=== PATIENT | male | born 1985 | race Caucasian/White ===

== ENCOUNTER 2017-06-05 15:33 | Emergency (ER) | payer SELFPAY ==
[2017-06-05 16:10] VITALS: BMI 27.1
[2017-06-05 16:13] VITALS: RESP 18
[2017-06-05] MEDS ORDERED: Naproxen 550 mg Tab PO STA (16:26)
--- NOTE | 2017-06-05 17:41 | C.PDOC ---
History Of Present Illness 32 y/o male presents to ED with complaints of left hand pain for 2 weeks. Patient states he works at [employer] and banged dorsum aspect of left hand with metal machine. Patient denies numbness, weakness, breaks in skin or any other complaints at this time. Time Seen by Provider: 06/05/17 15:51 Chief Complaint (Nursing): Finger,Hand,&Wrist History Per: Patient History/Exam Limitations: no limitations Onset/Duration Of Symptoms: Days Current Symptoms Are (Timing): Still Present Quality: "Pain" Past Medical History Reviewed: Historical Data, Nursing Documentation, Vital Signs Vital Signs: Last Vital Signs Temp 98.1 F 06/05/17 16:51 Pulse 91 H 06/05/17 16:51 Resp 18 06/05/17 16:51 BP 155/83 H 06/05/17 16:51 Pulse Ox 98 06/05/17 17:41 - Medical History PMH: No Chronic Diseases Surgical History: No Surg Hx - [facility] Procedures EXCISION OF LEFT SHOULDER MUSCLE, OPEN APPROACH, DIAGNOSTIC (01/31/15) EXCISION OF STOMACH, ENDO, DIAGN (03/05/15) Family History: States: No Known Family Hx - Social History Hx Alcohol Use: No (DENIED) Hx Substance Use: No (DENIED) - Immunization History Hx Tetanus Toxoid Vaccination: No Hx Influenza Vaccination: No Hx Pneumococcal Vaccination: No Review Of Systems Except As Marked, All Systems Reviewed And Found Negative. Musculoskeletal: Positive for: Hand Pain Skin: Negative for: Rash, Bruising Neurological: Negative for: Weakness, Numbness Physical Exam - Physical Exam Appears: Non-toxic, No Acute Distress Skin: Warm, Dry, No Rash Head: Atraumatic, Normacephalic Eye(s): bilateral: Normal Inspection Oral Mucosa: Moist Cardiovascular: Rhythm Regular Respiratory: Normal Breath Sounds, No Rales, No Rhonchi, No Wheezing Extremity: Tenderness (To palpation on dorsum aspect of left hand over 3rd MTP) , Capillary Refill (<2 seconds), No Deformity, Swelling (Dorsum aspect of left hand) Extremity: Left: Normal ROM Pulses: Left Radial: Normal, Right Radial: Normal Neurological/Psych: Oriented x3, Normal Motor, Normal Sensation ED Course And Treatment O2 Sat by Pulse Oximetry: 98 (RA) Pulse Ox Interpretation: Normal Progress Note: Left hand xray showed no fracture or dislocation. Patient put on removable spline and d/c with f.u to hand surgery Disposition Counseled Patient/Family Regarding: Studies Performed, Diagnosis, Need For Followup, Rx Given - Disposition Referrals: [facility] [Outside] [facility] [Outside] Thanh Gzumán MD [Medical Doctor] - Disposition: HOME/ ROUTINE Disposition Time: 17:40 Condition: STABLE Additional Instructions: FOLLOW UP WITH ORTHOPEDICS/HAND SURGERY WITHIN 1 WEEK USE PAIN MEDICATION DIRECTED RETURN TO EMERGENCY ROOM IF SYMPTOMS WORSEN SEGUIMIENTO CON ORTOPEDIA / CIRUGA DE LA MANO DENTRO DE 1 SEMANA UTILIZAR EL MEDICAMENTO PARA EL DOLOR COLE SE INDICA REGRESE AL SPENCER DE EMERGENCIA SI LOS SNTOMAS EMPEORAN Prescriptions: Naproxen [Naprosyn] 1 tab PO BID PRN #25 tab PRN Reason: Pain Instructions: Contusion (DC) Forms: [employer] (German) Print Language: TAJIK - POA Present On Arrival: None - Clinical Impression Clinical Impression: Sprain of left hand, Contusion of hand, left - Scribe Statement The provider has reviewed the documentation as recorded by the Scribchris Jenkins All medical record entries made by the Scribe were at my direction and personally dictated by me. I have reviewed the chart and agree that the record accurately reflects my personal performance of the history, physical exam, medical decision making, and the department course for this patient. I have also personally directed, reviewed, and agree with the discharge instructions and disposition.
--- NOTE | 2017-06-05 18:54 | RAD ---
PROCEDURE: Left Hand Radiographs. HISTORY: LEFT HAND INJURY R/O FX COMPARISON: None. FINDINGS: BONES: Normal. No fracture. JOINTS: Juxta-articular osteopenia of uncertain etiology/ significance. SOFT TISSUES: Soft tissue swelling dorsal aspect of the hand OTHER FINDINGS: None. IMPRESSION: Soft tissue swelling without acute articular or osseous abnormality. Concordant results with the preliminary interpretation rendered by the emergency department physician procedure.
[2017-06-05 19:06] VITALS: BP 148/76; PULSE 88; TEMP 98.5; O2SAT 99
== END 2017-06-05 19:05 | disposition home or self-care (01) ==
LOC: C.ER 15:33
DX: S63.92XA Sprain of unspecified part of left wrist and hand, initial encounter (principal); S60.222A Contusion of left hand, initial encounter; W22.8XXA Striking against or struck by other objects, initial encounter; Y92.89 Other specified places as the place of occurrence of the external cause; Y99.0 Civilian activity done for income or pay

== ENCOUNTER 2017-07-14 15:34 | Emergency (ER) | payer OTHER ==
[2017-07-14 15:42] VITALS: BMI 27.2
--- NOTE | 2017-07-14 15:53 | C.PDOC ---
History Of Present Illness 32 year old male presents to the ED with complaint of left 1st toe pain and swelling x 5 days. Patient states pain is near nail bed and onset was s/p cutting the nail about 1 week ago. Patient also reports discharge from the area. He denies fever, chills, direct injury. Time Seen by Provider: 07/14/17 15:49 Chief Complaint (Nursing): Lower Extremity Problem/Injury History Per: Patient History/Exam Limitations: no limitations Onset/Duration Of Symptoms: Days (5) Current Symptoms Are (Timing): Still Present Additional History Per: Patient - Ankle/Foot Description Of Injury: denies: Struck With Object, Struck Against Object Past Medical History Reviewed: Historical Data, Nursing Documentation, Vital Signs Vital Signs: Last Vital Signs Temp 98.6 F 07/14/17 17:12 Pulse 91 H 07/14/17 17:12 Resp 20 07/14/17 17:12 BP 135/86 07/14/17 17:12 Pulse Ox 98 07/14/17 17:12 - Medical History PMH: No Chronic Diseases Denies: HIV, Chronic Kidney Disease Surgical History: No Surg Hx - [facility] Procedures EXCISION OF LEFT SHOULDER MUSCLE, OPEN APPROACH, DIAGNOSTIC (01/31/15) EXCISION OF STOMACH, ENDO, DIAGN (03/05/15) Family History: States: Unknown Family Hx - Social History Hx Alcohol Use: No (DENIED) Hx Substance Use: No (DENIED) - Immunization History Hx Tetanus Toxoid Vaccination: No Hx Influenza Vaccination: Yes (2017) Hx Pneumococcal Vaccination: No Review Of Systems Constitutional: Negative for: Fever, Chills Musculoskeletal: Positive for: Other (left 1st toe pain, swelling and discharge ) Physical Exam - Physical Exam Appears: Well, No Acute Distress Skin: Normal Color, Warm, Dry, Other (paronychia to lateral aspect of left 1st toenail with some localized erythema and scant purulent drainage ) Head: Atraumatic Eye(s): bilateral: Normal Inspection Respiratory: Other (nard) Extremity: Normal ROM, Capillary Refill (less than 2 seconds ) Extremity: Bilateral: Atraumatic, No Pedal Edema, Normal ROM Neurological/Psych: Oriented x3, Normal Speech, Normal Cognition Gait: Steady ED Course And Treatment O2 Sat by Pulse Oximetry: 97 Progress - Re-Evaluation Re-evaluation Note: 07/14/17 15:54 D/W POD RESIDENT, WILL EVAL IN ER 07/14/17 17:03 s/p nail removal by podiatry resident. - Continuity of Care Discussed pt. case with software consultant/specialty: Podiatry Disposition Counseled Patient/Family Regarding: Diagnosis, Need For Followup, Rx Given - Disposition Referrals: [facility] [Outside] [facility] [Outside] Disposition: HOME/ ROUTINE Disposition Time: 17:03 Condition: IMPROVED Additional Instructions: FOLLOW UP PODIATRY CLINIC 07/24 Prescriptions: Acetaminophen [Tylenol Extra Strength] 2 tab PO Q6 #30 tablet Cephalexin [cephalexin] 500 mg PO BID #14 cap Ibuprofen [Motrin] 600 mg PO Q6 #30 tab Instructions: Paronychia (DC) Forms: [facility] (Telugu), Work Excuse - Clinical Impression Clinical Impression: Paronychia - Scribe Statement The provider has reviewed the documentation as recorded by the Scribe (Mary Tapia) Provider Attestation: All medical record entries made by the Scribe were at my direction and personally dictated by me. I have reviewed the chart and agree that the record accurately reflects my personal performance of the history, physical exam, medical decision making, and the department course for this patient. I have also personally directed, reviewed, and agree with the discharge instructions and disposition.
[2017-07-14] MEDS ORDERED: Lidocaine 2% Inj (20ml) INFIL ONE (16:45)
[2017-07-14] MEDS ORDERED: Lidocaine 2% MPF (5 ml) Inj ONE (16:48)
[2017-07-14] MEDS ORDERED: Bacitracin 500 Units/gm Oint Foilpak UD TOP ONE (17:02)
[2017-07-14] MEDS ORDERED: Bacitracin 500 Units/gm Oint Foilpak UD ONE (17:05)
[2017-07-14 17:14] VITALS: BP 135/86; PULSE 91; RESP 20; TEMP 98.6
--- NOTE | 2017-07-14 17:40 | CP.PCM.CON ---
History of Present Illness - History of Present Illness History of Present Illness: 32 yo male patient with no significant PMHx was seen at bedside ED this afternoon after request for podiatry consultation concerning Left foot hallux paronychia. Patient states he noticed pain and drainage to left hallux 1 week ago after he tried to cut his hallux nail. Patient complains of pain to left hallux. Patient denies of any trauma other than cutting his own nail. Patient denies of any similar experience in the past. Patient was verbally consented for the partial nail avulsion procedure. Patient denies of any N/V/F/C or SOB today Review of Systems - Constitutional Constitutional: As Per HPI Past Patient History - Past Medical History & Family History Past Medical History?: No - Past Social History Smoking Status: Light Smoker < 10 Cigarettes Daily - CARDIAC Hx Cardiac Disorders: No - PULMONARY Hx Respiratory Disorders: No - NEUROLOGICAL Hx Neurological Disorder: No - HEENT Hx HEENT Problems: No - RENAL Hx Chronic Kidney Disease: No - ENDOCRINE/METABOLIC Hx Endocrine Disorders: No - HEMATOLOGICAL/ONCOLOGICAL Hx Human Immunodeficiency Virus (HIV): No - INTEGUMENTARY Hx Dermatological Problems: No - MUSCULOSKELETAL/RHEUMATOLOGICAL Hx Falls: Yes - GASTROINTESTINAL Hx Gastrointestinal Disorders: No - GENITOURINARY/GYNECOLOGICAL Hx Genitourinary Disorders: No - PSYCHIATRIC Hx Substance Use: No (DENIED) - SURGICAL HISTORY Hx Surgeries: No - ANESTHESIA Hx Anesthesia: No Meds Home Medications: Home Medication List Medication Instructions Recorded Confirmed Type Acetaminophen [Tylenol Extra 2 tab PO Q6 #30 tablet 07/14/17 Rx Strength] Cephalexin [cephalexin] 500 mg PO BID #14 cap 07/14/17 Rx Ibuprofen [Motrin] 600 mg PO Q6 #30 tab 07/14/17 Rx Allergies/Adverse Reactions: Allergies Allergy/AdvReac Type Severity Reaction Status Date / Time No Known Allergies Allergy Verified 07/14/17 15:44 Physical Exam - Constitutional Appears: Well, Non-toxic, No Acute Distress - Head Exam Head Exam: ATRAUMATIC - Extremities Exam Additional comments: Left lower extremity exam DERM: Erythema noted to left hallux around medial border, mild serous drainage noted from the medial border of hallux nail, Slihg tmal-odor noted from the left hallux. Hallux nail is intact to the nailbed. VASC: Moderate swelling to left hallux noted, medially. Palpable DP and PT noted bilaterally DESIGNER ARCHITECT less than 3seconds noted to all digits NEURO: Gross sensation intact ORTHO: pain on palpation to left hallux medial aspect - Neurological Exam Neurological exam: Alert, Oriented x3 - Psychiatric Exam Psychiatric exam: Normal Affect, Normal Mood - Skin Skin Exam: Normal Color, Warm Results - Vital Signs Recent Vital Signs: Last Vital Signs Temp 98.6 F 07/14/17 17:12 Pulse 91 H 07/14/17 17:12 Resp 20 07/14/17 17:12 BP 135/86 07/14/17 17:12 Pulse Ox 98 07/14/17 17:12 Assessment & Plan - Assessment and Plan (Free Text) Assessment: 32 yo male patient presenting with painful left hallux paronychia Plan: Patient was seen, evaluated and treated labs and vitals reviewed discussed in detail with attending Dr. Thakkar Verbal consent obtained from the patient for left hallux partial nail avulsion Left hallux partial nail avulsion of medial border performed with sterile equipments; no complications; 2% Lidocaine plain 3cc injected into Left hallux prior to procedure Patient was advised to change dressing every other day with Bacitracin and DSD Patietn was advised to keep the dressing clean and dry patient was advised to follow up with podiatry clinic Rx pain medication per ED Rx PO abx per ED
[2017-07-15 09:11] VITALS: O2SAT 97
== END 2017-07-14 17:13 | disposition home or self-care (01) ==
LOC: C.ER 15:34
DX: L03.032 Cellulitis of left toe (principal)

== ENCOUNTER 2017-12-05 09:39 | Inpatient (IN) | payer OTHER ==
[2017-12-05 09:39] VITALS: BMI 27.2
[2017-12-05 10:13] LABS: BASO # 0.1 K/uL (0.0-0.2); BASO % 0.6 % (0.0-2.0); EOS # 0.1 K/uL (0.0-0.7); EOS % 0.4 % (0.0-4.0); HEMOGLOBIN 13.6 g/dL (12.0-18.0); LYMPH # 2.8 K/uL (1.0-4.3); LYMPH % 22.5 % (20.0-40.0); MEAN CELL VOLUME 89.7 fL (80.0-94.0); MEAN CORPUSCULAR HEMOGLOBIN 31.5 pg (27.0-31.0); MEAN CORPUSCULAR HGB CONC 35.1 g/dL (33.0-37.0); MEAN PLATELET VOLUME 9.1 fL (7.2-11.7); MONO # 1.1 K/uL (0.0-0.8); MONO % 8.6 % (0.0-10.0); NEUT # 8.4 K/uL (1.8-7.0); NEUT % 67.9 % (50.0-75.0); NRBC % 0.1 % (0.0-2.0); RBC 4.33 Mil/uL (4.40-5.90); RED CELL DISTRIBUTION WIDTH 12.6 % (11.5-14.5); WHITE BLOOD COUNT 12.4 K/uL (4.8-10.8)
[2017-12-05 10:37] LABS: ALB/GLOB RATIO 1.1 (1.0-2.1); ALBUMIN 4.8 g/dL (3.5-5.0); ALT/SGPT 38 U/L (21-72); AST/SGOT 57 U/L (17-59); BLOOD UREA NITROGEN 11 mg/dL (9-20); CALCIUM 9.2 mg/dl (8.6-10.4); GFR NON-AFRICAN AMERICAN > 60
[2017-12-05] MEDS ORDERED: Vancomycin 1 GM 1 GM/250 ML BAG IV STA (10:45)
[2017-12-05] MEDS ORDERED: Cefepime IV 1 gm in Dextrose 1 GM/50 ML BAG IVPB STA (10:45)
[2017-12-05] MEDS ORDERED: Vancomycin 1 GM 1 GM/250 ML BAG IVPB ONE (10:56)
--- NOTE | 2017-12-05 12:02 | C.PDOC ---
History Of Present Illness Patient presents to ED c/o pain, swelling and redness of the left leg for approx 3 days. He states he was itchy and picked at the area, and then the symptoms began. Patient denies fever, trauma/injuries, calf pain, SOB, sensory changes. 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 Time Seen by Provider: 12/05/17 09:51 Chief Complaint (Nursing): Lower Extremity Problem/Injury History Per: Patient History/Exam Limitations: no limitations Onset/Duration Of Symptoms: Days (3) Current Symptoms Are (Timing): Still Present Severity: Moderate Past Medical History Reviewed: Historical Data, Nursing Documentation, Vital Signs Vital Signs: Last Vital Signs Temp 97.5 F L 12/05/17 09:54 Pulse 88 12/05/17 09:54 Resp 20 12/05/17 09:54 BP 127/86 12/05/17 09:54 Pulse Ox 100 12/05/17 09:54 - Medical History Other PMH: dermatomyositis - [facility] Procedures EXCISION OF LEFT SHOULDER MUSCLE, OPEN APPROACH, DIAGNOSTIC (01/31/15) EXCISION OF STOMACH, ENDO, DIAGN (03/05/15) Family History: States: No Known Family Hx - Social History Hx Alcohol Use: No (DENIED) Hx Substance Use: No (DENIED) - Immunization History Hx Tetanus Toxoid Vaccination: No Hx Influenza Vaccination: Yes (2017) Hx Pneumococcal Vaccination: No Review Of Systems Constitutional: Negative for: Fever, Chills Cardiovascular: Negative for: Chest Pain, Palpitations Respiratory: Negative for: Shortness of Breath Gastrointestinal: Negative for: Nausea, Vomiting, Abdominal Pain, Diarrhea Musculoskeletal: Positive for: Leg Pain Neurological: Negative for: Weakness, Numbness Physical Exam - Physical Exam Appears: Well, Non-toxic, No Acute Distress Skin: Other (see extremity exam, (+) scattered small abrasions/healing wounds on extremities, no track bahena ) Head: Normacephalic Eye(s): bilateral: Normal Inspection Oral Mucosa: Moist Cardiovascular: Rhythm Regular Respiratory: Normal Breath Sounds, No Rales, No Rhonchi, No Wheezing Gastrointestinal/Abdominal: Normal Exam, Bowel Sounds, Soft, No Tenderness Extremity: Capillary Refill (< 2 sec all digits ), Other (left lower leg - erythema from superior aspect of patella to distal lower leg, (+) warm to touch, (+) diffusely TTP, no calf tenderness) Pulses: Left Dorsalis Pedis: Normal, Right Dorsalis Pedis: Normal Neurological/Psych: Oriented x3, Normal Sensation Gait: Steady ED Course And Treatment - Laboratory Results Result Diagrams: 12/12/17 04:26 12/12/17 04:26 O2 Sat by Pulse Oximetry: 100 (ra) Pulse Ox Interpretation: Normal Progress Note: Blood work ordered and reviewed. Patient given IV NS bolus, IV Vancomycin + IV Cefepime. - Physician Consult Information Physician Contacted: Doyle Tapia Outcome Of Conversation: Discussed patient with hospitalist, agrees with admission for left leg cellulitis. Disposition - Disposition Disposition: HOSPITALIZED Disposition Time: 11:48 Condition: STABLE - Clinical Impression Clinical Impression: Left leg cellulitis Decision To Admit - Pt Status Changed To: Hospital Disposition Of: Inpatient - Admit Certification Admit to Inpatient:: After my assessment, the patient will require hospitalization for at least two midnights. This is because of the severity of symptoms shown, intensity of services needed, and/or the medical risk in this patient being treated as an outpatient. - InPatient: Physician Admission Certification: I certify that this patient requires 2 or more midnights of care for the following reason:: see notes - . Bed Request Type: Regular Admitting Physician: Doyle Tapia Patient Diagnosis: Left leg cellulitis
[2017-12-05 13:01] LABS: URINE BACTERIA RARE (<OCC); URINE BILIRUBIN NEGATIVE (NEGATIVE); URINE BLOOD 1+ (NEGATIVE); URINE CLARITY Clear (Clear); URINE COLOR Amber (YELLOW); URINE GLUCOSE (UA) NORMAL (Normal); URINE LEUKOCYTE ESTERASE NEG Leu/uL (Negative); URINE PROTEIN 3+ mg/dL (NEGATIVE); URINE UROBILINOGEN NORMAL mg/dL (0.2-1.0)
[2017-12-05] MEDS ORDERED: HYDROmorphone 0.5 mg/0.5 ml ISec ONE (15:10)
[2017-12-05] MEDS: Sodium Chloride 0.9% 1,000 ML IV SCH ×2 (16:06→19:11)
--- NOTE | 2017-12-05 17:37 | CP.PCM.CON ---
History of Present Illness - History of Present Illness History of Present Illness: Patient was seen in the ER hallway he has severe cellulitis on left knee and leg started from the left leg to the knee and is painful knee. he does not say any trauma or insect bite but had fever and chills and left leg redness andpain that brought him to the hospital He also give history of Polymyositis and was in hospital for 1 year in 2016 and was treated by high dose steroids. He denies any weakness in his upper body or other muscles at present. Did had feverhe went to work today but felt weak and pain and came to ER No history of Diabetes not taking any medications at home denies any drug abuse, Light smoking surgeries: none Past Patient History - Past Medical History & Family History Past Medical History?: No - Past Social History Smoking Status: Light Smoker < 10 Cigarettes Daily - CARDIAC Hx Cardiac Disorders: No - PULMONARY Hx Respiratory Disorders: No - NEUROLOGICAL Hx Neurological Disorder: No - HEENT Hx HEENT Problems: No - RENAL Hx Chronic Kidney Disease: No - ENDOCRINE/METABOLIC Hx Endocrine Disorders: No - HEMATOLOGICAL/ONCOLOGICAL Hx Human Immunodeficiency Virus (HIV): No - INTEGUMENTARY Hx Dermatological Problems: No - MUSCULOSKELETAL/RHEUMATOLOGICAL Hx Falls: Yes - GASTROINTESTINAL Hx Gastrointestinal Disorders: No - GENITOURINARY/GYNECOLOGICAL Hx Genitourinary Disorders: No - PSYCHIATRIC Hx Substance Use: No (DENIED) - SURGICAL HISTORY Hx Surgeries: No - ANESTHESIA Hx Anesthesia: No Meds Allergies/Adverse Reactions: Allergies Allergy/AdvReac Type Severity Reaction Status Date / Time No Known Allergies Allergy Verified 12/05/17 09:56 - Medications Medications: Current Medications Vancomycin HCl 1,000 mg/ (Sodium Chloride) 250 mls @ 166.6 mls/hr IVPB Q12H SVITLANA; Protocol Cefepime HCl 1 gm/ Dextrose 50 mls @ 100 mls/hr IVPB Q12H SVITLANA; Protocol Sodium Chloride (Sodium Chloride 0.9%) 1,000 mls @ 150 mls/hr IV .Q6H40M SVITLANA Last Admin: 12/05/17 16:06 Dose: 150 mls/hr Lactobacillus Acidophilus (Bacid Acidophilus) 1 cap PO BID SVITLANA Physical Exam - Constitutional Appears: No Acute Distress - Head Exam Head Exam: ATRAUMATIC, NORMOCEPHALIC - Eye Exam Eye Exam: Normal appearance - ENT Exam ENT Exam: Mucous Membranes Dry - Neck Exam Neck exam: Positive for: Normal Inspection - Respiratory Exam Respiratory Exam: Clear to Auscultation Bilateral - Cardiovascular Exam Cardiovascular Exam: REGULAR RHYTHM, +S1, +S2 - GI/Abdominal Exam GI & Abdominal Exam: Normal Bowel Sounds, Soft - Extremities Exam Extremities exam: Positive for: joint swelling Additional comments: left leg extensive swelling from left leg to left knee redness and diffuse warmth and swelling Results - Vital Signs Recent Vital Signs: Last Vital Signs Temp 99.8 F H 12/05/17 14:33 Pulse 97 H 12/05/17 14:33 Resp 18 12/05/17 14:33 BP 115/70 12/05/17 14:33 Pulse Ox 97 12/05/17 14:33 - Labs Result Diagrams: 12/05/17 10:10 12/05/17 10:10 Labs: Laboratory Results - last 24 hr 12/05/17 12/05/17 12/05/17 10:10 10:10 12:49 WBC 12.4 H D RBC 4.33 L Hgb 13.6 Hct 38.8 MCV 89.7 D MCH 31.5 H MCHC 35.1 RDW 12.6 Plt Count 184 MPV 9.1 Neut % (Auto) 67.9 Lymph % (Auto) 22.5 [place] % (Auto) 8.6 Eos % (Auto) 0.4 Baso % (Auto) 0.6 Neut # (Auto) 8.4 H Lymph # (Auto) 2.8 [place] # (Auto) 1.1 H Eos # (Auto) 0.1 Baso # (Auto) 0.1 Sodium 140 Potassium 4.5 Chloride 97 L Carbon Dioxide 28 Anion Gap 19 BUN 11 Creatinine 0.5 L Est GFR ( Amer) > 60 Est GFR (Non-Af Amer) > 60 Random Glucose 118 H Calcium 9.2 Total Bilirubin 1.3 AST 57 ALT 38 Alkaline Phosphatase 79 Total Creatine Kinase 1234 H Total Protein 9.1 H Albumin 4.8 Globulin 4.3 H Albumin/Globulin Ratio 1.1 Urine Color Rosie Urine Clarity Clear Urine pH 5.0 Ur Specific [place] 1.025 Urine Protein 3+ H Urine Glucose (UA) Normal Urine Ketones 1+ H Urine Blood 1+ H Urine Nitrate Negative Urine Bilirubin Negative Urine Urobilinogen Normal Ur Leukocyte Esterase Neg Urine WBC (Auto) 1 Urine RBC (Auto) < 1 Urine Bacteria Rare Assessment & Plan (1) Cellulitis of left leg Status: Acute (2) Cellulitis of left knee Status: Acute - Assessment and Plan (Free Text) Assessment: Patient is started on Vncomycin and will change amxipime to Rocephin 2gm daily and will follow septic work up has been ordered
[2017-12-05] MEDS ORDERED: cefTRIAXone 2 GM IN NS 2 GM/100 ML BAG IVPB SCH (18:00)
[2017-12-05] MEDS ORDERED: Lactobacillus Acidophilus 500 MU Cap PO SCH (18:00)
[2017-12-05] MEDS ORDERED: cefTRIAXone 1 gm 0 GM/0 ML BAG IVPB ONE (18:24)
[2017-12-05] MEDS: Lactobacillus Acidophilus 500 MU Cap PO SCH (18:57)
[2017-12-05] MEDS: cefTRIAXone 2 GM in Sodium Chloride 0.9% 100 ML IVPB SCH (19:02)
--- NOTE | 2017-12-05 19:25 | CP.PCM.HP ---
<Ani Gorman P - Last Filed: 12/05/17 20:15> History of Present Illness - History of Present Illness History of Present Illness: H&P note for hospitalist service. 32 year old male PMHx of polymyositis and rhabdomyolysis as per medical record presents to ED complaining of redness, swelling, and pain to left lower extremity. States he scratched a scab on his left knee one week ago and 3 days ago developed pain, redness, and swelling extending from L knee down to the foot. Pain worsens with range of motion. Symptoms are associated with fevers and chills. Denies focal weakness, numbness, tingling, travel, trauma, chest pain, shortness of breath, cough, palpitations, muscle weakness, nausea, vomiting, abdominal pain, diarrhea. Patient has previous admissions to [facility] for rhabdomyolysis and polymyositis treated with, Imuran, Methotrexate, and steroid therapy. Patient last took steroids/followed up with yeast stacker, Dr. Bolton, approximately 1.5 years ago. PMHx: polymyositis, rhabdomyolysis, H. Pylori PSHx: denies Medications: denies Allergies: NKDA Family Hx: 3 year old daughter with multiple surgeries to correct congenital lack of anus Social: denies tobacco use, alcohol and illicit drugs. 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 Proxy: clark Blounter [phone] Code status: full code Present on Admission - Present on Admission Any Indicators Present on Admission: No Review of Systems - Constitutional Constitutional: Chills, Fever. absent: Headache, Lethargy, Weight Loss - EENT Eyes: absent: Blurred Vision, Loss of Vision - Cardiovascular Cardiovascular: Leg Edema. absent: Chest Pain, Diaphoresis, Dyspnea on Exertion, Lightheadedness, Orthopnea, Palpitations, Rapid Heart Rate, Syncope - Respiratory Respiratory: absent: Cough, Dyspnea, Hemoptysis, Wheezing, Snoring - Gastrointestinal Gastrointestinal: absent: Abdominal Pain, Belching, Bloating, Constipation, C ramping, Diarrhea, Dysphagia, Melena - Musculoskeletal Musculoskeletal: Joint Swelling. absent: Deformity, Muscle Cramps, Muscle Weakness, Numbness, Tingling - Neurological Neurological: absent: Abnormal Hearing, Abnormal Speech, Disequilibrium, Dizziness, Numbness, Focal Weakness, Headaches, Lack of Coordination, Pares thesias, Sensory Deficit, Syncope, Tingling Past Patient History - Past Medical History & Family History Past Medical History?: No - Past Social History Smoking Status: Light Smoker < 10 Cigarettes Daily - CARDIAC Hx Cardiac Disorders: No - PULMONARY Hx Respiratory Disorders: No - NEUROLOGICAL Hx Neurological Disorder: No - HEENT Hx HEENT Problems: No - RENAL Hx Chronic Kidney Disease: No - ENDOCRINE/METABOLIC Hx Endocrine Disorders: No - HEMATOLOGICAL/ONCOLOGICAL Hx Human Immunodeficiency Virus (HIV): No - INTEGUMENTARY Hx Dermatological Problems: No - MUSCULOSKELETAL/RHEUMATOLOGICAL Hx Falls: Yes - GASTROINTESTINAL Hx Gastrointestinal Disorders: No - GENITOURINARY/GYNECOLOGICAL Hx Genitourinary Disorders: No - PSYCHIATRIC Hx Substance Use: No (DENIED) - SURGICAL HISTORY Hx Surgeries: No - ANESTHESIA Hx Anesthesia: No Meds Allergies/Adverse Reactions: Allergies Allergy/AdvReac Type Severity Reaction Status Date / Time No Known Allergies Allergy Verified 12/05/17 09:56 Physical Exam - Constitutional Appears: Non-toxic, No Acute Distress - Head Exam Head Exam: ATRAUMATIC, NORMOCEPHALIC - Eye Exam Eye Exam: EOMI, PERRL - ENT Exam ENT Exam: Mucous Membranes Moist - Neck Exam Neck exam: Positive for: Full Rom, Normal Inspection - Respiratory Exam Respiratory Exam: Clear to Auscultation Bilateral, NORMAL BREATHING PATTERN. absent: Rales, Rhonchi, Wheezes - Cardiovascular Exam Cardiovascular Exam: REGULAR RHYTHM, +S1, +S2 - GI/Abdominal Exam GI & Abdominal Exam: Normal Bowel Sounds, Soft. absent: Guarding, Rebound, Tenderness Additional comments: + L inguinal lymphadenopathy - Extremities Exam Extremities exam: Positive for: normal capillary refill (bilateral lower ex tremities), tenderness (to L leg from knee to ankle. No crepitus. ), pedal pulses present (equal bilaterally). Negative for: calf tenderness, normal inspection (erythema, edema, tenderness and warmth from L knee to L ankle within demarcated black ink. ) - Neurological Exam Neurological exam: Alert, CN II-XII Intact, Oriented x3 - Psychiatric Exam Psychiatric exam: Normal Affect, Normal Mood - Skin Skin Exam: Dry, Warm Additional comments: Erythema noted to neck and chest, hyperpigmentation to R infraorbital area, patch of dry skin to R elbow, and other than noted in extremity exam, normal. Results - Vital Signs Recent Vital Signs: Last Vital Signs Temp 99.8 F H 10/16/18 14:33 Pulse 97 H 12/05/17 14:33 Resp 18 12/05/17 14:33 BP 115/70 12/05/17 14:33 Pulse Ox 97 12/05/17 14:33 - Labs Result Diagrams: 12/05/17 10:10 12/05/17 10:10 Labs: Laboratory Results - last 24 hr 12/05/17 12/05/17 12/05/17 10:10 10:10 12:49 WBC 12.4 H D RBC 4.33 L Hgb 13.6 Hct 38.8 MCV 89.7 D MCH 31.5 H MCHC 35.1 RDW 12.6 Plt Count 184 MPV 9.1 Neut % (Auto) 67.9 Lymph % (Auto) 22.5 [place] % (Auto) 8.6 Eos % (Auto) 0.4 Baso % (Auto) 0.6 Neut # (Auto) 8.4 H Lymph # (Auto) 2.8 [place] # (Auto) 1.1 H Eos # (Auto) 0.1 Baso # (Auto) 0.1 Sodium 140 Potassium 4.5 Chloride 97 L Carbon Dioxide 28 Anion Gap 19 BUN 11 Creatinine 0.5 L Est GFR ( Amer) > 60 Est GFR (Non-Af Amer) > 60 Random Glucose 118 H Calcium 9.2 Total Bilirubin 1.3 AST 57 ALT 38 Alkaline Phosphatase 79 Total Creatine Kinase 1234 H Total Protein 9.1 H Albumin 4.8 Globulin 4.3 H Albumin/Globulin Ratio 1.1 Urine Color Rosie Urine Clarity Clear Urine pH 5.0 Ur Specific [place] 1.025 Urine Protein 3+ H Urine Glucose (UA) Normal Urine Ketones 1+ H Urine Blood 1+ H Urine Nitrate Negative Urine Bilirubin Negative Urine Urobilinogen Normal Ur Leukocyte Esterase Neg Urine WBC (Auto) 1 Urine RBC (Auto) < 1 Urine Bacteria Rare Assessment & Plan - Assessment and Plan (Free Text) Plan: 32 year old male PMHx of polymyositis and rhabdomyolysis admitted for left leg cellulitis. L leg cellulitis -Ceftriaxone 2gm Q24H started 12/05 -Vancomycin 1g Q12H started 12/05 -f/u vanco trough 12/06 12am -f/u blood cultures -Venous doppler LLE: prelim negative -Dr. Zuniga, ID, consulted. Help appreciated. Rhabdomyolysis -NS @ 150mls/hr -f/u CK isoenzymes -UA: 3+ protein, 1+ketone, 1+blood Hx of Polymyositis -Follow up with Dr. Bolton outpatient Proplylaxis -SCD R leg only -chemical VTE prophylaxis not indicated -GI prophylaxis not indicated -Lactobacillus 1cap PO BID -HHD Case discussed with Dr. Jean Marie Tapia. <Doyle Tapia - Last Filed: 12/06/17 19:05> Results - Vital Signs Recent Vital Signs: Last Vital Signs Temp 98.4 F 12/06/17 15:55 Pulse 73 12/06/17 15:55 Resp 18 12/06/17 15:55 BP 116/76 12/06/17 15:55 Pulse Ox 97 12/06/17 15:55 - Labs Result Diagrams: 12/06/17 06:35 12/06/17 06:35 Labs: Laboratory Results - last 24 hr 12/05/17 12/06/17 12/06/17 21:10 06:35 06:35 WBC 9.1 RBC 3.81 L Hgb 11.9 L Hct 34.7 L MCV 90.9 MCH 31.2 H MCHC 34.4 RDW 13.1 Plt Count 170 MPV 9.2 Neut % (Auto) 73.4 Lymph % (Auto) 15.8 L [place] % (Auto) 8.8 Eos % (Auto) 1.7 Baso % (Auto) 0.3 Neut # (Auto) 6.7 Lymph # (Auto) 1.4 [place] # (Auto) 0.8 Eos # (Auto) 0.2 Baso # (Auto) 0.0 Sodium 139 Potassium 3.9 Chloride 105 Carbon Dioxide 23 Anion Gap 15 BUN 10 Creatinine 0.5 L Est GFR ( Amer) > 60 Est GFR (Non-Af Amer) > 60 POC Glucose (mg/dL) 109 Random Glucose 130 H Calcium 7.9 L Phosphorus 2.5 Magnesium 2.1 Total Bilirubin 0.6 AST 67 H ALT 48 Alkaline Phosphatase 90 Total Creatine Kinase 704 H Total Protein 7.2 Albumin 3.6 Globulin 3.6 Albumin/Globulin Ratio 1.0 Procalcitonin 12/06/17 06:35 WBC RBC Hgb Hct MCV MCH MCHC RDW Plt Count MPV Neut % (Auto) Lymph % (Auto) [place] % (Auto) Eos % (Auto) Baso % (Auto) Neut # (Auto) Lymph # (Auto) [place] # (Auto) Eos # (Auto) Baso # (Auto) Sodium Potassium Chloride Carbon Dioxide Anion Gap BUN Creatinine Est GFR ( Amer) Est GFR (Non-Af Amer) POC Glucose (mg/dL) Random Glucose Calcium Phosphorus Magnesium Total Bilirubin AST ALT Alkaline Phosphatase Total Creatine Kinase Total Protein Albumin Globulin Albumin/Globulin Ratio Procalcitonin 0.07 L Attending/Attestation - Attestation I have personally seen and examined this patient.: Yes I have fully participated in the care of the patient.: Yes I have reviewed all pertinent clinical information: Yes Notes (Text): 12/06/17 19:02 This is a late entry. Patient was seen and examined roughly ten minutes after speaking with ER physician concerning patient on 12/05/17 in HW Bed 6 History, Physical, Assessment and Plan and orders were thoroughly gone over with the resident. Evidence of cellulitis (erythema, warmth, pain, nonpitting edema) on left anterior and lateral lower leg from just superior to the ankle to the the left knee. Area was demarcated with black ink by me at the time of my exam. NO evidence of compartment syndrome at the time of my exam. Patient gave no history of trauma to the area. Doyle Tapia D.O.
[2017-12-05] MEDS: Pantoprazole 40 mg EC Tab PO SCH (21:31)
[2017-12-06] MEDS: Sodium Chloride 0.9% 1,000 ML IV SCH ×5 (01:50→22:09)
[2017-12-06 06:47] LABS: BASO % 0.3 % (0.0-2.0); EOS # 0.2 K/uL (0.0-0.7); EOS % 1.7 % (0.0-4.0); HEMOGLOBIN 11.9 g/dL (12.0-18.0); LYMPH # 1.4 K/uL (1.0-4.3); LYMPH % 15.8 % (20.0-40.0); MEAN CELL VOLUME 90.9 fL (80.0-94.0); MEAN CORPUSCULAR HEMOGLOBIN 31.2 pg (27.0-31.0); MEAN CORPUSCULAR HGB CONC 34.4 g/dL (33.0-37.0); MEAN PLATELET VOLUME 9.2 fL (7.2-11.7); MONO # 0.8 K/uL (0.0-0.8); MONO % 8.8 % (0.0-10.0); NEUT # 6.7 K/uL (1.8-7.0); NEUT % 73.4 % (50.0-75.0); RBC 3.81 Mil/uL (4.40-5.90); RED CELL DISTRIBUTION WIDTH 13.1 % (11.5-14.5); WHITE BLOOD COUNT 9.1 K/uL (4.8-10.8)
[2017-12-06 07:36] LABS: BLOOD UREA NITROGEN 10 mg/dL (9-20)
[2017-12-06 07:37] LABS: ALBUMIN 3.6 g/dL (3.5-5.0); ALT/SGPT 48 U/L (21-72); AST/SGOT 67 U/L (17-59); CALCIUM 7.9 mg/dl (8.6-10.4); GFR NON-AFRICAN AMERICAN > 60
--- NOTE | 2017-12-06 09:33 | VASCLAB ---
Date of service: 12/05/2017 PROCEDURE: Left Lower Extremity Venous Duplex Exam. HISTORY: Edema of Left Leg. R/O DVT PRIORS: None. TECHNIQUE: Left common femoral, femoral, popliteal and posterior tibial, peroneal and great saphenous veins were evaluated. Flow was assessed with color Doppler, compressibility, assessment of phasic flow and augmentation response. Report prepared by Rogelio Crooks, BS, RVT FINDINGS: LEFT: 1. Common Femoral Vein: 1.1. Compressibility - Fully compressible: Thrombus - None : Flow - Phasic: Augmentation -Normal: Reflux - None. 2. Femoral Vein: 2.1. Compressibility - Fully compressible: Thrombus - None: Flow - Phasic: Augmentation -Normal: Reflux - None. 3. Popliteal Vein: 3.1. Compressibility - Fully compressible: Thrombus - None: Flow - Phasic: Augmentation -Normal: Reflux - None. 4. Posterior Tibial Vein: 4.1. Compressibility - Fully compressible: Thrombus - None: Flow - Phasic: Augmentation -Normal: Reflux - None. 5. Peroneal Vein: 5.1. Compressibility - Fully compressible: Thrombus - None: Flow - Phasic: Augmentation -Normal: Reflux - None. 6. Great Saphenous Vein: 6.1. Compressibility - Fully compressible: Thrombus - None: Flow - Phasic: Augmentation - Normal: Reflux - None. OTHER FINDINGS: Anechoic vascularized masses noted in the left groin area, possibly enlarged lymph nodes. IMPRESSION: No evidence of deep or superficial vein thrombosis of the left lower extremity with excellent venous flow. Normal valve function noted of the left side. Normal venous flow noted in the right common femoral vein.
[2017-12-06] MEDS: Lactobacillus Acidophilus 500 MU Cap PO SCH ×2 (09:53→17:46)
[2017-12-06] MEDS: Pantoprazole 40 mg EC Tab PO SCH (09:53)
--- NOTE | 2017-12-06 11:04 | CP.PCM.PN ---
<Ani Gorman P - Last Filed: 12/06/17 23:50> Subjective - Date & Time of Evaluation Date of Evaluation: 12/06/17 Time of Evaluation: 11:03 - Subjective Subjective: PGY-[address] Tapia. Patient seen and evaluated. States he feels much better. Pain, swelling and redness all reduced today. Patient reports fever yesterday, none today. States he is eating swell. Denies chest pain, shortness of breath, abdominal curtis, numbness, tingling. Objective - Vital Signs/Intake and Output Vital Signs (last 24 hours): Temp Pulse Resp BP Pulse Ox 102.1 F H 97 H 20 114/70 96 12/06/17 07:00 12/06/17 07:00 12/06/17 07:00 12/06/17 07:00 12/06/17 07:00 - Medications Medications: Current Medications Vancomycin HCl 1,000 mg/ (Sodium Chloride) 250 mls @ 166.6 mls/hr IVPB Q12H [facility]; Protocol Last Admin: 12/05/17 23:54 Dose: 166.6 mls/hr Sodium Chloride (Sodium Chloride 0.9%) 1,000 mls @ 150 mls/hr IV .Q6H40M [facility] Last Admin: 12/06/17 09:00 Dose: Not Given Ceftriaxone Sodium 2 gm/ (Sodium Chloride) 100 mls @ 100 mls/hr IVPB Q24H [facility]; Protocol Last Admin: 12/05/17 19:02 Dose: 100 mls/hr Ibuprofen (Motrin Tab) 400 mg PO Q4H PRN PRN Reason: Fever >100.4 F Influenza Virus Vaccine (Fluzone Quad [id number]) 60 mcg IM .ONCE ONE Stop: 12/08/17 10:01 Ketorolac Tromethamine (Toradol) 30 mg IVP Q6H PRN PRN Reason: Pain, severe (8-10) Last Admin: 12/06/17 09:54 Dose: 30 mg Ketorolac Tromethamine (Toradol) 15 mg IVP Q6H PRN PRN Reason: Pain, moderate (4-7) Lactobacillus Acidophilus (Bacid Acidophilus) 1 cap PO BID [facility] Last Admin: 12/06/17 09:53 Dose: 1 cap Pantoprazole Sodium (Protonix Ec Tab) 40 mg PO DAILY [facility] Last Admin: 12/06/17 09:53 Dose: 40 mg Pneumococcal Polyvalent Vaccine (Pneumovax 23 Vaccine) 0.5 ml IM .ONCE ONE Stop: 12/07/17 10:01 - Labs Labs: 12/06/17 06:35 12/06/17 06:35 - Constitutional Appears: Non-toxic, No Acute Distress - Head Exam Head Exam: ATRAUMATIC, NORMOCEPHALIC - Eye Exam Eye Exam: EOMI, Normal appearance - ENT Exam ENT Exam: Mucous Membranes Moist - Neck Exam Neck Exam: Full ROM - Respiratory Exam Respiratory Exam: Clear to Ausculation Bilateral. absent: Rales, Rhonchi, Wheezes, NORMAL BREATHING PATTERN - Cardiovascular Exam Cardiovascular Exam: REGULAR RHYTHM, +S1, +S2 - GI/Abdominal Exam GI & Abdominal Exam: Soft. absent: Guarding, Tenderness, Rebound - Extremities Exam Extremities Exam: Joint Swelling, Tenderness Additional comments: Erythema, swelling and warmth reduced since yesterday and within demarcated line. - Neurological Exam Neurological Exam: Alert, Awake, Oriented x3 - Psychiatric Exam Psychiatric exam: Normal Affect, Normal Mood - Skin Skin Exam: Dry, Warm. absent: Normal Color (L leg with erythema and swelling, otherwise normal. ) Assessment and Plan - Assessment and Plan (Free Text) Plan: 32 year old male PMHx of polymyositis and rhabdomyolysis admitted for left leg cellulitis. L leg cellulitis -Ceftriaxone 2gm Q24H started 12/05 -Vancomycin 1g Q12H started 12/05 -f/u vanco trough 12/06 12am -blood cultures negative 24H -Venous doppler LLE: negative -Dr. Zuniga, ID, consulted. Help appreciated. Rhabdomyolysis -NS @ 150mls/hr -f/u CK isoenzymes -UA: 3+ protein, 1+ketone, 1+blood Hx of Polymyositis -Follow up with Dr. Bolton outpatient Proplylaxis -SCD R leg only -chemical VTE prophylaxis not indicated -GI prophylaxis not indicated -Lactobacillus 1cap PO BID -HHD <Doyle Tapia - Last Filed: 12/07/17 19:00> Objective - Vital Signs/Intake and Output Vital Signs (last 24 hours): Temp Pulse Resp BP Pulse Ox 98.9 F 87 18 119/68 95 12/07/17 15:51 12/07/17 15:51 12/07/17 15:51 12/07/17 15:51 12/07/17 15:51 Intake and Output: 12/07/17 12/08/17 18:59 06:59 Intake Total 1575 Output Total 1200 Balance 375 - Medications Medications: Current Medications Acetaminophen (Tylenol 325mg Tab) 650 mg PO Q6 PRN PRN Reason: Fever >100.4 F Last Admin: 12/07/17 13:57 Dose: 650 mg Sodium Chloride (Sodium Chloride 0.9%) 1,000 mls @ 150 mls/hr IV .Q6H40M [facility] Last Admin: 12/07/17 12:50 Dose: Not Given Vancomycin HCl 1,400 mg/ (Sodium Chloride) 500 mls @ 200 mls/hr IVPB Q12H [facility]; Protocol Last Admin: 12/07/17 17:18 Dose: 200 mls/hr Cefepime HCl (Maxipime Iv 2 Gm Premix) 2 gm in 100 mls @ 200 mls/hr IVPB Q12H [facility]; Protocol Stop: 12/12/17 17:01 Last Admin: 12/07/17 16:33 Dose: 200 mls/hr Ketorolac Tromethamine (Toradol) 30 mg IVP Q6H PRN PRN Reason: Pain, severe (8-10) Last Admin: 12/07/17 13:43 Dose: 30 mg Ketorolac Tromethamine (Toradol) 15 mg IVP Q6H PRN PRN Reason: Pain, moderate (4-7) Lactobacillus Acidophilus (Bacid Acidophilus) 1 cap PO BID [facility] Last Admin: 12/07/17 17:21 Dose: 1 cap Pantoprazole Sodium (Protonix Ec Tab) 40 mg PO DAILY [facility] Last Admin: 12/07/17 09:47 Dose: 40 mg - Labs Labs: 12/07/17 07:36 12/07/17 07:36 Attending/Attestation - Attestation I have personally seen and examined this patient.: Yes I have fully participated in the care of the patient.: Yes I have reviewed all pertinent clinical information, including history, physical exam and plan: Yes Notes (Text): 12/07/17 19:00 This is a late entry. Care of this patient was gone over in detail with the resident. Doyle Tapia D.O.
--- NOTE | 2017-12-06 14:34 | CP.PCM.PN ---
Subjective - Date & Time of Evaluation Date of Evaluation: 12/06/17 Time of Evaluation: 14:00 - Subjective Subjective: dictated Objective - Vital Signs/Intake and Output Vital Signs (last 24 hours): Temp Pulse Resp BP Pulse Ox 98.5 F 80 20 112/70 98 12/06/17 12:00 12/06/17 12:00 12/06/17 12:00 12/06/17 12:00 12/06/17 12:00 - Medications Medications: Current Medications Vancomycin HCl 1,000 mg/ (Sodium Chloride) 250 mls @ 166.6 mls/hr IVPB Q12H [facility]; Protocol Last Admin: 12/06/17 12:32 Dose: 166.6 mls/hr Sodium Chloride (Sodium Chloride 0.9%) 1,000 mls @ 150 mls/hr IV .Q6H40M [facility] Last Admin: 12/06/17 12:31 Dose: 150 mls/hr Ceftriaxone Sodium 2 gm/ (Sodium Chloride) 100 mls @ 100 mls/hr IVPB Q24H [facility]; Protocol Last Admin: 12/05/17 19:02 Dose: 100 mls/hr Ibuprofen (Motrin Tab) 400 mg PO Q4H PRN PRN Reason: Fever >100.4 F Influenza Virus Vaccine (Fluzone Quad [id number]) 60 mcg IM .ONCE ONE Stop: 12/08/17 10:01 Ketorolac Tromethamine (Toradol) 30 mg IVP Q6H PRN PRN Reason: Pain, severe (8-10) Last Admin: 12/06/17 09:54 Dose: 30 mg Ketorolac Tromethamine (Toradol) 15 mg IVP Q6H PRN PRN Reason: Pain, moderate (4-7) Lactobacillus Acidophilus (Bacid Acidophilus) 1 cap PO BID [facility] Last Admin: 12/06/17 09:53 Dose: 1 cap Pantoprazole Sodium (Protonix Ec Tab) 40 mg PO DAILY [facility] Last Admin: 12/06/17 09:53 Dose: 40 mg Pneumococcal Polyvalent Vaccine (Pneumovax 23 Vaccine) 0.5 ml IM .ONCE ONE Stop: 12/07/17 10:01 - Labs Labs: 12/06/17 06:35 12/06/17 06:35 Assessment and Plan (1) Cellulitis of left leg Status: Acute (2) Cellulitis of left knee Status: Acute
[2017-12-06] MEDS: cefTRIAXone 2 GM in Sodium Chloride 0.9% 100 ML IVPB SCH (17:47)
--- NOTE | 2017-12-07 01:25 | PN ---
DATE: 12/06/2017 SUBJECTIVE: The patient is feeling a lot better. He has left cellulitis, this is mildly improved, and less pain on his knee. He remains afebrile. He is not complaining of any muscle pain in other areas. He has had polymyositis in the past. PHYSICAL EXAMINATION VITAL SIGNS: T-max is 98.4, pulse 73, blood pressure 116/76, respirations are 18. HEENT: Head is atraumatic and normocephalic. NECK: Supple. LUNGS: Clear. HEART: S1, S2 is regular. ABDOMEN: Soft, nontender. EXTREMITIES: Left knee and left leg are unremarkable. Still the redness persists, but it is in the area which was marked. Left knee appears less swollen and redness is there, warmth is there, but it is improved slightly from yesterday. LABORATORY DATA: WBC is 9.1, hemoglobin 11.9, hematocrit 34.7, platelet count is 170. BUN is 10, creatinine 0.5. Procalcitonin level was 0.07. Cultures of blood and urine are negative. PLAN: We will continue both vancomycin and Zosyn at this time. Once he improves a lot, I think we can switch that to Bactrim or clindamycin. We will follow. Harinder Zuniga MD
[2017-12-07] MEDS: Sodium Chloride 0.9% 1,000 ML IV SCH ×3 (04:30→12:50)
[2017-12-07 07:59] LABS: BASO % 0.4 % (0.0-2.0); EOS # 0.3 K/uL (0.0-0.7); EOS % 2.6 % (0.0-4.0); HEMOGLOBIN 11.8 g/dL (12.0-18.0); LYMPH # 1.7 K/uL (1.0-4.3); LYMPH % 16.8 % (20.0-40.0); MEAN CELL VOLUME 91.8 fL (80.0-94.0); MEAN CORPUSCULAR HEMOGLOBIN 31.5 pg (27.0-31.0); MEAN CORPUSCULAR HGB CONC 34.3 g/dL (33.0-37.0); MEAN PLATELET VOLUME 9.2 fL (7.2-11.7); MONO # 0.7 K/uL (0.0-0.8); MONO % 7.6 % (0.0-10.0); NEUT # 7.1 K/uL (1.8-7.0); NEUT % 72.6 % (50.0-75.0); RBC 3.74 Mil/uL (4.40-5.90); WHITE BLOOD COUNT 9.8 K/uL (4.8-10.8)
[2017-12-07 08:32] LABS: ALBUMIN 3.8 g/dL (3.5-5.0); ALT/SGPT 79 U/L (21-72); AST/SGOT 83 U/L (17-59); BLOOD UREA NITROGEN 8 mg/dL (9-20); CALCIUM 8.3 mg/dl (8.6-10.4); GFR NON-AFRICAN AMERICAN > 60
[2017-12-07] MEDS: Lactobacillus Acidophilus 500 MU Cap PO SCH ×2 (09:47→17:21)
[2017-12-07] MEDS: Pantoprazole 40 mg EC Tab PO SCH (09:47)
[2017-12-07] MEDS ORDERED: Pneumococcal 23-Valent Vaccine IM ONE (10:00)
--- NOTE | 2017-12-07 10:08 | CP.PCM.PN ---
<Ani Gorman P - Last Filed: 12/07/17 18:02> Subjective - Date & Time of Evaluation Date of Evaluation: 12/07/17 Time of Evaluation: 08:00 - Subjective Subjective: Patient seen and examined at bedside. Patient had fever overnight, which improved with ibuprofen. Patient states pain to L leg has improved. States he is eating well and having bowel movements. Denies myalgias, weakness, lightheadedness, chest pain, shortness of breath, cough, and dysuria. Objective - Vital Signs/Intake and Output Vital Signs (last 24 hours): Temp Pulse Resp BP Pulse Ox 99.2 F 84 20 126/83 96 12/07/17 07:00 12/07/17 07:00 12/07/17 07:00 12/07/17 07:00 12/07/17 07:00 Intake and Output: 12/07/17 12/07/17 06:59 18:59 Intake Total 1500 Output Total 500 Balance 1000 - Medications Medications: Current Medications Acetaminophen (Tylenol 325mg Tab) 650 mg PO Q6 PRN PRN Reason: Fever >100.4 F Vancomycin HCl 1,000 mg/ (Sodium Chloride) 250 mls @ 166.6 mls/hr IVPB Q12H [facility]; Protocol Last Admin: 12/07/17 00:40 Dose: 166.6 mls/hr Sodium Chloride (Sodium Chloride 0.9%) 1,000 mls @ 150 mls/hr IV .Q6H40M [facility] Last Admin: 12/07/17 06:58 Dose: 150 mls/hr Ceftriaxone Sodium 2 gm/ (Sodium Chloride) 100 mls @ 100 mls/hr IVPB Q24H [facility]; Protocol Last Admin: 12/06/17 17:47 Dose: 100 mls/hr Ketorolac Tromethamine (Toradol) 30 mg IVP Q6H PRN PRN Reason: Pain, severe (8-10) Last Admin: 12/06/17 09:54 Dose: 30 mg Ketorolac Tromethamine (Toradol) 15 mg IVP Q6H PRN PRN Reason: Pain, moderate (4-7) Lactobacillus Acidophilus (Bacid Acidophilus) 1 cap PO BID [facility] Last Admin: 12/07/17 09:47 Dose: 1 cap Pantoprazole Sodium (Protonix Ec Tab) 40 mg PO DAILY [facility] Last Admin: 12/07/17 09:47 Dose: 40 mg - Labs Labs: 12/07/17 07:36 12/07/17 07:36 - Head Exam Head Exam: ATRAUMATIC, NORMOCEPHALIC - Eye Exam Eye Exam: EOMI, Normal appearance - ENT Exam ENT Exam: Mucous Membranes Moist - Neck Exam Neck Exam: Full ROM, Normal Inspection - Respiratory Exam Respiratory Exam: Clear to Ausculation Bilateral. absent: Rales, Rhonchi, Wheezes - Cardiovascular Exam Cardiovascular Exam: REGULAR RHYTHM, +S1, +S2 - GI/Abdominal Exam GI & Abdominal Exam: Soft, Normal Bowel Sounds. absent: Guarding, Tenderness, Rebound - Extremities Exam Extremities Exam: Pedal Edema (LLE). absent: Calf Tenderness, Normal Inspection (new redness and warmth spreading past demarcated line medial to R knee), Tenderness (RLE is non tender to palpation) - Neurological Exam Neurological Exam: Alert, Awake, Oriented x3 Neuro motor strength exam: Left Upper Extremity: 5, Right Upper Extremity: 5, Left Lower Extremity: 5, Right Lower Extremity: 5 - Psychiatric Exam Psychiatric exam: Normal Affect, Normal Mood - Skin Skin Exam: Dry, Warm. absent: Normal Color (erythema over RLE from knee to ankle) Assessment and Plan - Assessment and Plan (Free Text) Plan: 32 year old male PMHx of polymyositis and rhabdomyolysis admitted for left leg cellulitis. L leg cellulitis -Ceftriaxone 2gm Q24H started 12/05 -Vancomycin 1g Q12H started 12/05 -vanco trough 12/06 12am: <5, subtherapeutic continue to monitor, next trough: 12/08/17 23:30 -blood cultures negative 24H -Venous doppler LLE: negative -Tylenol for fevers -Dr. Zuniga, ID, consulted. Help appreciated. Continue current regiment, once improved consider switching to Bactrim or clindamycin Rhabdomyolysis -NS @ 150mls/hr -f/u CK isoenzymes -UA: 3+ protein, 1+ketone, 1+blood Hx of Polymyositis -Follow up with Dr. Bolton outpatient Proplylaxis -SCD R leg only -chemical VTE prophylaxis not indicated -GI prophylaxis not indicated -Lactobacillus 1cap PO BID -[facility] <Doyle Tapia - Last Filed: 12/07/17 19:00> Objective - Vital Signs/Intake and Output Vital Signs (last 24 hours): Temp Pulse Resp BP Pulse Ox 98.9 F 87 18 119/68 95 12/07/17 15:51 12/07/17 15:51 12/07/17 15:51 12/07/17 15:51 12/07/17 15:51 Intake and Output: 12/07/17 12/07/17 06:59 18:59 Intake Total 1500 1575 Output Total 500 1200 Balance 1000 375 - Medications Medications: Current Medications Acetaminophen (Tylenol 325mg Tab) 650 mg PO Q6 PRN PRN Reason: Fever >100.4 F Last Admin: 12/07/17 13:57 Dose: 650 mg Sodium Chloride (Sodium Chloride 0.9%) 1,000 mls @ 150 mls/hr IV .Q6H40M [facility] Last Admin: 12/07/17 12:50 Dose: Not Given Vancomycin HCl 1,400 mg/ (Sodium Chloride) 500 mls @ 200 mls/hr IVPB Q12H [facility]; Protocol Last Admin: 12/07/17 17:18 Dose: 200 mls/hr Cefepime HCl (Maxipime Iv 2 Gm Premix) 2 gm in 100 mls @ 200 mls/hr IVPB Q12H [facility]; Protocol Stop: 12/12/17 17:01 Last Admin: 12/07/17 16:33 Dose: 200 mls/hr Ketorolac Tromethamine (Toradol) 30 mg IVP Q6H PRN PRN Reason: Pain, severe (8-10) Last Admin: 12/07/17 13:43 Dose: 30 mg Ketorolac Tromethamine (Toradol) 15 mg IVP Q6H PRN PRN Reason: Pain, moderate (4-7) Lactobacillus Acidophilus (Bacid Acidophilus) 1 cap PO BID [facility] Last Admin: 12/07/17 17:21 Dose: 1 cap Pantoprazole Sodium (Protonix Ec Tab) 40 mg PO DAILY [facility] Last Admin: 12/07/17 09:47 Dose: 40 mg - Labs Labs: 12/07/17 07:36 12/07/17 07:36 Attending/Attestation - Attestation I have personally seen and examined this patient.: Yes I have fully participated in the care of the patient.: Yes I have reviewed all pertinent clinical information, including history, physical exam and plan: Yes Notes (Text): 12/07/17 18:51 Patient was seen and examined at 11:30 AM 12/07/17 663 A Care of this patient was gone over in detail with the resident. Upon FULL ROS: Some pain in the left lower leg last night but is currently manageable NO diarrhea NO chest pain NO SOB/Cough/Wheezing NO abdominal pain NO burning/pain with urination NO changes in color of urine NO paresthesias NO other complaints upon FULL ROS General: AAOX3, NAD HEENT: NCA, EOMI, PERRLA, NO cervical/submandibular/supraclavicular lymphadenopathy, NO pharyngeal erythema/exudate, NO thyromegaly, Nasal Turbinates are moist/nonerythematous/nonedematous Cardio: NS1, NS2, NO M/R/G Resp: CTA B/L, NO R/R/W GI: BSX4, Soft, NT, ND, NO guarding/rebound tenderness, NO HSM Ext: Pulses are strong and equal AND capillary refill is 2 seconds in B/L UE and LE, Left Lower Anterior Leg from superior to the ankle to the left knee: erythema, warmth, nonpitting edema but no longer tender to palpation, Normal coloration of the bilateral feet toes Neuro: CN II Through XII are grossly intact Assessments: 1). Left Lower Anterior Leg Cellulitis 2). Rhabdomyolysis 3). Hx Polymyositis LFTs have risen: likely secondary to cephalosporin use and we will continue to monitor ID Dr. Zuniga has discontinue Ceftriaxone and started Cefepime 2 gm IV Q12H. We will continue the Vancomycin which has been increased to 1,400 mg IV Q12H by Dr. Zuniga Total CK is declining and we will continue the NS IVF at 150 ml/hr Blood Culture negative to date Doyle Tapia D.O.
[2017-12-07] MEDS: Cefepime IV 2 gm in Dextrose 2 GM/100 ML BAG IVPB SCH (16:33)
--- NOTE | 2017-12-07 22:22 | CP.PCM.PN ---
Subjective - Date & Time of Evaluation Date of Evaluation: 12/07/17 Time of Evaluation: 15:00 - Subjective Subjective: dictated Objective - Vital Signs/Intake and Output Vital Signs (last 24 hours): Temp Pulse Resp BP Pulse Ox 98.9 F 87 18 119/68 95 12/07/17 15:51 12/07/17 15:51 12/07/17 15:51 12/07/17 15:51 12/07/17 15:51 Intake and Output: 12/07/17 12/08/17 18:59 06:59 Intake Total 1575 Output Total 1200 Balance 375 - Medications Medications: Current Medications Acetaminophen (Tylenol 325mg Tab) 650 mg PO Q6 PRN PRN Reason: Fever >100.4 F Last Admin: 12/07/17 13:57 Dose: 650 mg Sodium Chloride (Sodium Chloride 0.9%) 1,000 mls @ 150 mls/hr IV .Q6H40M [facility] Last Admin: 12/07/17 12:50 Dose: Not Given Vancomycin HCl 1,400 mg/ (Sodium Chloride) 500 mls @ 200 mls/hr IVPB Q12H [facility]; Protocol Last Admin: 12/07/17 17:18 Dose: 200 mls/hr Cefepime HCl (Maxipime Iv 2 Gm Premix) 2 gm in 100 mls @ 200 mls/hr IVPB Q12H [facility]; Protocol Stop: 12/12/17 17:01 Last Admin: 12/07/17 16:33 Dose: 200 mls/hr Ketorolac Tromethamine (Toradol) 30 mg IVP Q6H PRN PRN Reason: Pain, severe (8-10) Last Admin: 12/07/17 13:43 Dose: 30 mg Ketorolac Tromethamine (Toradol) 15 mg IVP Q6H PRN PRN Reason: Pain, moderate (4-7) Lactobacillus Acidophilus (Bacid Acidophilus) 1 cap PO BID [facility] Last Admin: 12/07/17 17:21 Dose: 1 cap Pantoprazole Sodium (Protonix Ec Tab) 40 mg PO DAILY [facility] Last Admin: 12/07/17 09:47 Dose: 40 mg - Labs Labs: 12/07/17 07:36 12/07/17 07:36 Assessment and Plan (1) Cellulitis of left leg Status: Acute (2) Cellulitis of left knee Status: Acute
[2017-12-08 00:16] VITALS: RESP 20
[2017-12-08] MEDS: Sodium Chloride 0.9% 1,000 ML IV SCH ×4 (00:26→21:02)
--- NOTE | 2017-12-08 02:26 | PN ---
DATE: 12/07/2017 SUBJECTIVE: The nurse surprised me that the patient was having 103 fever in spite of being on vancomycin and Rocephin. He denies any complaints. His cellulitis was decreasing from the site; however, he has been febrile. Denies any other joint pains. He does have a history of dermatomyositis. PHYSICAL EXAMINATION: GENERAL AND VITAL SIGNS: At this time, he did not appear toxic but fever of 103.1, blood pressure 126/83, respirations are 20, heart rate is 84. HEENT: Head is atraumatic and normocephalic. NECK: Supple. LUNGS: Clear. HEART: S1 and S2 are regular. ABDOMEN: Soft. EXTREMITIES: Left knee still has cellulitis, may have some effusion and has cellulitis extending from the knee to the foot. LABORATORY DATA: Labs were noted. Labs show white count is 9.8, hemoglobin 11.8, hematocrit 34.3, platelet count is 184. BUN is 8, creatinine 0.4, random level glucose was 114. His LFTs have gone up. Total CPK has decreased to 558. Alk phos is 159. LFTs were going up. ASSESSMENT AND PLAN: Vancomycin trough is going less than 5. So, I have increased the dose of vancomycin to 1400 mg every 12 hours, and I have changed the Rocephin to Maxipime. I have ordered blood cultures; however, the cultures when he came in were negative. Anyway, I do not think they did blood cultures today but if he continues to spike, he will need to be evaluated by Orthopedics for left knee aspiration. I am hoping it is just simple cellulitis and skin and soft tissue infection as he does have extensive cellulitis. We will only come to know once it improves. We will follow with vancomycin and Maxipime on board. Harinder Zuniga MD
[2017-12-08] MEDS: Cefepime IV 2 gm in Dextrose 2 GM/100 ML BAG IVPB SCH ×2 (04:50→16:44)
[2017-12-08 06:24] LABS: BASO % 0.4 % (0.0-2.0); EOS # 0.3 K/uL (0.0-0.7); EOS % 3.3 % (0.0-4.0); HEMOGLOBIN 10.9 g/dL (12.0-18.0); LYMPH # 1.4 K/uL (1.0-4.3); LYMPH % 17.4 % (20.0-40.0); MEAN CELL VOLUME 91.2 fL (80.0-94.0); MEAN CORPUSCULAR HEMOGLOBIN 31.4 pg (27.0-31.0); MEAN CORPUSCULAR HGB CONC 34.5 g/dL (33.0-37.0); MEAN PLATELET VOLUME 8.9 fL (7.2-11.7); MONO # 0.7 K/uL (0.0-0.8); MONO % 8.7 % (0.0-10.0); NEUT # 5.7 K/uL (1.8-7.0); NEUT % 70.2 % (50.0-75.0); RBC 3.47 Mil/uL (4.40-5.90); WHITE BLOOD COUNT 8.1 K/uL (4.8-10.8)
[2017-12-08 06:47] LABS: ALB/GLOB RATIO 0.9 (1.0-2.1); ALBUMIN 3.4 g/dL (3.5-5.0); ALT/SGPT 118 U/L (21-72); AST/SGOT 95 U/L (17-59); BLOOD UREA NITROGEN 6 mg/dL (9-20); CALCIUM 7.9 mg/dl (8.6-10.4); GFR NON-AFRICAN AMERICAN > 60
[2017-12-08] MEDS: Pantoprazole 40 mg EC Tab PO SCH (09:49)
[2017-12-08] MEDS: Lactobacillus Acidophilus 500 MU Cap PO SCH ×2 (09:49→17:37)
[2017-12-08] MEDS ORDERED: Influenza Vaccine 60 MCG/0.5 ML SYR (3 yr & up) IM ONE (10:00)
--- NOTE | 2017-12-08 17:05 | CP.PCM.PN ---
<Ani Gorman P - Last Filed: 12/08/17 19:23> Subjective - Date & Time of Evaluation Date of Evaluation: 12/08/17 Time of Evaluation: 08:00 - Subjective Subjective: PGY-[address] Tapia. Patient seen and examined laying on bed. He stated that he feels better than when he was admitted. He stated the pain in his legs has decreased, and the area of inflammation had decreased. He had a fever last night around 1am and was given Tylenol with relief. He reported no pain on extremities, no abdomen pain on deep palpation, no nausea, vomiting, constipation, diarrhea, chest pain, palpitations or shortness of breath. Objective - Vital Signs/Intake and Output Vital Signs (last 24 hours): Temp Pulse Resp BP Pulse Ox 97.3 F L 82 20 132/80 99 12/08/17 07:20 12/08/17 07:20 12/08/17 07:20 12/08/17 07:20 12/08/17 07:20 Intake and Output: 12/08/17 12/08/17 06:59 18:59 Intake Total 1500 1240 Output Total 800 Balance 700 1240 - Medications Medications: Current Medications Acetaminophen (Tylenol 325mg Tab) 650 mg PO Q6 PRN PRN Reason: Fever >100.4 F Last Admin: 12/08/17 00:24 Dose: 650 mg Sodium Chloride (Sodium Chloride 0.9%) 1,000 mls @ 150 mls/hr IV .Q6H40M [facility] Last Admin: 12/08/17 11:03 Dose: 150 mls/hr Vancomycin HCl 1,400 mg/ (Sodium Chloride) 500 mls @ 200 mls/hr IVPB Q12H [facility]; Protocol Last Admin: 12/08/17 05:30 Dose: 200 mls/hr Cefepime HCl (Maxipime Iv 2 Gm Premix) 2 gm in 100 mls @ 200 mls/hr IVPB Q12H [facility]; Protocol Stop: 12/12/17 17:01 Last Admin: 12/08/17 16:44 Dose: 200 mls/hr Ketorolac Tromethamine (Toradol) 30 mg IVP Q6H PRN PRN Reason: Pain, severe (8-10) Last Admin: 12/07/17 13:43 Dose: 30 mg Ketorolac Tromethamine (Toradol) 15 mg IVP Q6H PRN PRN Reason: Pain, moderate (4-7) Last Admin: 12/08/17 09:49 Dose: 15 mg Lactobacillus Acidophilus (Bacid Acidophilus) 1 cap PO BID [facility] Last Admin: 12/08/17 09:49 Dose: 1 cap Pantoprazole Sodium (Protonix Ec Tab) 40 mg PO DAILY [facility] Last Admin: 12/08/17 09:49 Dose: 40 mg - Labs Labs: 12/08/17 06:15 12/08/17 06:15 - Head Exam Head Exam: ATRAUMATIC, NORMOCEPHALIC - Eye Exam Eye Exam: EOMI, PERRL - ENT Exam ENT Exam: Mucous Membranes Moist - Neck Exam Neck Exam: Full ROM, Normal Inspection - Respiratory Exam Respiratory Exam: Clear to Ausculation Bilateral, NORMAL BREATHING PATTERN. absent: Rales, Rhonchi, Wheezes - Cardiovascular Exam Cardiovascular Exam: REGULAR RHYTHM, +S1, +S2 - GI/Abdominal Exam GI & Abdominal Exam: Soft, Normal Bowel Sounds. absent: Guarding, Tenderness, Rebound Additional comments: No L inguinal tenderness - Extremities Exam Extremities Exam: Normal Capillary Refill, Normal Inspection (+ redness, swelling and warmth but improved from yesterday and contained within demarcated line. ). absent: Calf Tenderness, Tenderness (no tenderness to palpation) - Neurological Exam Neurological Exam: Alert, Awake, Oriented x3 - Psychiatric Exam Psychiatric exam: Normal Affect, Normal Mood - Skin Skin Exam: Dry, Intact, Warm Assessment and Plan - Assessment and Plan (Free Text) Plan: 32 year old male PMHx of polymyositis and rhabdomyolysis admitted for left leg cellulitis. L leg cellulitis -Cefepime 2g Q12H added on 12/07 -Vancomycin increased to 1400mg Q12H -vanco trough 12/06 12am: <5, subtherapeutic continue to monitor next trough: 12/09/17 04:30 -discontinued Ceftriaxone 2gm Q24H -blood cultures: negative 3 days -Venous doppler LLE: negative -Tylenol for fevers -Dr. Zuniga, ID, consulted. Help appreciated. Rhabdomyolysis -Total CK: 1234>704>558>511 -NS @ 150mls/hr -f/u CK isoenzymes -UA: 3+ protein, 1+ketone, 1+blood Hx of Polymyositis -Follow up with Dr. Bolton outpatient Elevated LFTs -AST/ALT: 57/38--->95/118 -monitor Proplylaxis -SCD R leg only -chemical VTE prophylaxis not indicated -GI prophylaxis not indicated -Lactobacillus 1cap PO BID -[facility] <Doyle Tapia - Last Filed: 12/08/17 19:56> Objective - Vital Signs/Intake and Output Vital Signs (last 24 hours): Temp Pulse Resp BP Pulse Ox 99.4 F 99 H 20 151/83 H 99 12/08/17 18:37 12/08/17 15:00 12/08/17 15:00 12/08/17 15:00 12/08/17 15:00 Intake and Output: 12/08/17 12/09/17 18:59 06:59 Intake Total 1240 Balance 1240 - Medications Medications: Current Medications Acetaminophen (Tylenol 325mg Tab) 650 mg PO Q6 PRN PRN Reason: Fever >100.4 F Last Admin: 12/08/17 17:37 Dose: 650 mg Sodium Chloride (Sodium Chloride 0.9%) 1,000 mls @ 150 mls/hr IV .Q6H40M [facility] Last Admin: 12/08/17 11:03 Dose: 150 mls/hr Vancomycin HCl 1,400 mg/ (Sodium Chloride) 500 mls @ 200 mls/hr IVPB Q12H [facility]; Protocol Last Admin: 12/08/17 17:37 Dose: 200 mls/hr Cefepime HCl (Maxipime Iv 2 Gm Premix) 2 gm in 100 mls @ 200 mls/hr IVPB Q12H [facility]; Protocol Stop: 12/12/17 17:01 Last Admin: 12/08/17 16:44 Dose: 200 mls/hr Ketorolac Tromethamine (Toradol) 30 mg IVP Q6H PRN PRN Reason: Pain, severe (8-10) Last Admin: 12/08/17 17:41 Dose: 30 mg Ketorolac Tromethamine (Toradol) 15 mg IVP Q6H PRN PRN Reason: Pain, moderate (4-7) Last Admin: 12/08/17 09:49 Dose: 15 mg Lactobacillus Acidophilus (Bacid Acidophilus) 1 cap PO BID [facility] Last Admin: 12/08/17 17:37 Dose: 1 cap Pantoprazole Sodium (Protonix Ec Tab) 40 mg PO DAILY [facility] Last Admin: 12/08/17 09:49 Dose: 40 mg - Labs Labs: 12/08/17 06:15 12/08/17 06:15 Attending/Attestation - Attestation I have personally seen and examined this patient.: Yes I have fully participated in the care of the patient.: Yes I have reviewed all pertinent clinical information, including history, physical exam and plan: Yes Notes (Text): 12/08/17 19:49 Patient was seen and examined at 8:15 AM 12/08/17 663 A Care of this patient was gone over in detail with the resident. Upon FULL ROS: Pain in the Left Lower Leg has resolved NO diarrhea NO chest pain NO SOB/Cough/Wheezing NO abdominal pain NO burning/pain with urination NO changes in color of urine NO paresthesias NO other complaints upon FULL ROS General: AAOX3, NAD HEENT: NCA, EOMI, PERRLA, NO cervical/submandibular/supraclavicular lymphadenopathy, NO pharyngeal erythema/exudate, NO thyromegaly, Nasal Turbinates are moist/nonerythematous/nonedematous Cardio: NS1, NS2, NO M/R/G Resp: CTA B/L, NO R/R/W GI: BSX4, Soft, NT, ND, NO guarding/rebound tenderness, NO HSM Ext: Pulses are strong and equal AND capillary refill is 2 seconds in B/L UE and LE, Left Lower Anterior Leg from superior to the ankle to the left knee: erythema, warmth, nonpitting edema but no longer tender to palpation, Normal coloration of the bilateral feet toes Neuro: CN II Through XII are grossly intact Assessments: 1). Left Lower Anterior Leg Cellulitis 2). Rhabdomyolysis 3). Hx Polymyositis LFTs continue to rise: likely secondary to cephalosporin use and we will continue to monitor as ID Dr. Zuniga who was made aware, wants to continue Cefepime for now Cefepime 2 gm IV Q12H and Vancomycin 1,400 mg IV Q12H F/U Vancomycin Trough at 4:30 AM 12/09/17 Total CK is declining and we will continue the NS IVF at 150 ml/hr Blood Culture negative to date Doyle Tapia D.O.
--- NOTE | 2017-12-08 19:48 | CP.PCM.PN ---
Subjective - Date & Time of Evaluation Date of Evaluation: 12/08/17 Time of Evaluation: 14:35 - Subjective Subjective: dictated Objective - Vital Signs/Intake and Output Vital Signs (last 24 hours): Temp Pulse Resp BP Pulse Ox 99.4 F 99 H 20 151/83 H 99 12/08/17 18:37 12/08/17 15:00 12/08/17 15:00 12/08/17 15:00 12/08/17 15:00 Intake and Output: 12/08/17 12/09/17 18:59 06:59 Intake Total 1240 Balance 1240 - Medications Medications: Current Medications Acetaminophen (Tylenol 325mg Tab) 650 mg PO Q6 PRN PRN Reason: Fever >100.4 F Last Admin: 12/08/17 17:37 Dose: 650 mg Sodium Chloride (Sodium Chloride 0.9%) 1,000 mls @ 150 mls/hr IV .Q6H40M [facility] Last Admin: 12/08/17 11:03 Dose: 150 mls/hr Vancomycin HCl 1,400 mg/ (Sodium Chloride) 500 mls @ 200 mls/hr IVPB Q12H [facility]; Protocol Last Admin: 12/08/17 17:37 Dose: 200 mls/hr Cefepime HCl (Maxipime Iv 2 Gm Premix) 2 gm in 100 mls @ 200 mls/hr IVPB Q12H [facility]; Protocol Stop: 12/12/17 17:01 Last Admin: 12/08/17 16:44 Dose: 200 mls/hr Ketorolac Tromethamine (Toradol) 30 mg IVP Q6H PRN PRN Reason: Pain, severe (8-10) Last Admin: 12/08/17 17:41 Dose: 30 mg Ketorolac Tromethamine (Toradol) 15 mg IVP Q6H PRN PRN Reason: Pain, moderate (4-7) Last Admin: 12/08/17 09:49 Dose: 15 mg Lactobacillus Acidophilus (Bacid Acidophilus) 1 cap PO BID [facility] Last Admin: 12/08/17 17:37 Dose: 1 cap Pantoprazole Sodium (Protonix Ec Tab) 40 mg PO DAILY [facility] Last Admin: 12/08/17 09:49 Dose: 40 mg - Labs Labs: 12/08/17 06:15 12/08/17 06:15 Assessment and Plan (1) Cellulitis of left leg Status: Acute (2) Cellulitis of left knee Status: Acute
--- NOTE | 2017-12-08 23:18 | PN ---
DATE: 12/08/2017 SUBJECTIVE: He keeps on having fevers in spite of being on two strong antibiotics. He came in with cellulitis of the left leg. He does have history of dermatomyositis. Remains febrile. PHYSICAL EXAMINATION: VITAL SIGNS: T-max is 99, blood pressure 151/83, respirations are 20. ASSESSMENT AND PLAN: His liver function tests are also elevated. I thought when I saw him, he was afebrile and his leg looks little better with the cellulitis. He has a past history of dermatomyositis, so at this point when the area, which has redness and swelling is decreasing, but he is having fevers, which make me feel as if come in with a high creatine phosphokinase. Etiology of this fever remains unclear now and liver enzymes are elevated, but I had just changed the medication from Rocephin to Maxipime, and he is on vancomycin. I would think we need a log roper to look into it also as his fevers persist. He is on 2 g every 12 hours of cefepime. He is on vancomycin 1400 mg every 12 hours, which we just increased the dose yesterday, so I am not sure why he is still having fevers. We will see if he has done ESR and PRP, do some rheumatological workup as the left knee is also involved, but it looks to be external rather than the knee involvement. We will get an x-ray of the knee and we will follow. Harinder Zuniga MD
[2017-12-09] MEDS: Sodium Chloride 0.9% 1,000 ML IV SCH ×3 (03:10→18:24)
[2017-12-09] MEDS: Cefepime IV 2 gm in Dextrose 2 GM/100 ML BAG IVPB SCH ×2 (04:17→17:10)
[2017-12-09 05:11] LABS: BASO # 0.1 K/uL (0.0-0.2); BASO % 0.8 % (0.0-2.0); EOS # 0.3 K/uL (0.0-0.7); EOS % 3.9 % (0.0-4.0); HEMOGLOBIN 10.6 g/dL (12.0-18.0); LYMPH # 1.4 K/uL (1.0-4.3); LYMPH % 16.2 % (20.0-40.0); MEAN CELL VOLUME 90.6 fL (80.0-94.0); MEAN CORPUSCULAR HEMOGLOBIN 30.4 pg (27.0-31.0); MEAN CORPUSCULAR HGB CONC 33.6 g/dL (33.0-37.0); MEAN PLATELET VOLUME 8.5 fL (7.2-11.7); MONO # 0.7 K/uL (0.0-0.8); NEUT # 6.2 K/uL (1.8-7.0); NEUT % 71.1 % (50.0-75.0); NRBC % 0.1 % (0.0-2.0); RBC 3.48 Mil/uL (4.40-5.90); RED CELL DISTRIBUTION WIDTH 12.9 % (11.5-14.5); WHITE BLOOD COUNT 8.7 K/uL (4.8-10.8)
[2017-12-09 05:30] LABS: ALBUMIN 3.4 g/dL (3.5-5.0); ALT/SGPT 112 U/L (21-72); AST/SGOT 76 U/L (17-59); BLOOD UREA NITROGEN 7 mg/dL (9-20); CALCIUM 8.2 mg/dl (8.6-10.4); GFR NON-AFRICAN AMERICAN > 60
[2017-12-09 05:36] LABS: COMPLEMENT C4 25.4 mg/dL (14.0-44.0)
--- NOTE | 2017-12-09 08:12 | CP.PCM.PN ---
<Ani Gorman P - Last Filed: 12/09/17 17:55> Subjective - Date & Time of Evaluation Date of Evaluation: 12/09/17 Time of Evaluation: 08:11 - Subjective Subjective: PGY-[address] Tapia. Patient seen and examined at bedside. Patient reports mild pain to LLE in the area of cellulitis. Yesterday, patient had a fever of 103 at 5pm, and was given tylenol with relief. Patient is afebrile at the time of exam. Denies chest pain, shortness of breath, nausea, vomiting, abdominal pain, diarrhea, dysuria. Objective - Vital Signs/Intake and Output Vital Signs (last 24 hours): Temp Pulse Resp BP Pulse Ox 99.8 F H 88 20 148/83 98 12/09/17 07:00 12/09/17 07:00 12/09/17 07:00 12/09/17 07:00 12/09/17 07:00 Intake and Output: 12/09/17 12/09/17 06:59 18:59 Intake Total 2950 Output Total 700 Balance 2250 - Medications Medications: Current Medications Acetaminophen (Tylenol 325mg Tab) 650 mg PO Q6 PRN PRN Reason: Fever >100.4 F Last Admin: 12/08/17 17:37 Dose: 650 mg Sodium Chloride (Sodium Chloride 0.9%) 1,000 mls @ 150 mls/hr IV .Q6H40M [facility] Last Admin: 12/09/17 03:10 Dose: 150 mls/hr Vancomycin HCl 1,400 mg/ (Sodium Chloride) 500 mls @ 200 mls/hr IVPB Q12H [facility]; Protocol Last Admin: 12/09/17 05:25 Dose: 200 mls/hr Cefepime HCl (Maxipime Iv 2 Gm Premix) 2 gm in 100 mls @ 200 mls/hr IVPB Q12H [facility]; Protocol Stop: 12/12/17 17:01 Last Admin: 12/09/17 04:17 Dose: 200 mls/hr Lactobacillus Acidophilus (Bacid Acidophilus) 1 cap PO BID [facility] Last Admin: 12/08/17 17:37 Dose: 1 cap Pantoprazole Sodium (Protonix Ec Tab) 40 mg PO DAILY [facility] Last Admin: 12/08/17 09:49 Dose: 40 mg - Labs Labs: 12/09/17 05:07 12/09/17 05:07 - Constitutional Appears: Non-toxic, No Acute Distress - Head Exam Head Exam: ATRAUMATIC, NORMOCEPHALIC - Eye Exam Eye Exam: EOMI, PERRL - ENT Exam ENT Exam: Mucous Membranes Moist - Neck Exam Neck Exam: Full ROM, Normal Inspection - Respiratory Exam Respiratory Exam: Clear to Ausculation Bilateral, NORMAL BREATHING PATTERN. absent: Rales, Rhonchi, Wheezes - Cardiovascular Exam Cardiovascular Exam: REGULAR RHYTHM - GI/Abdominal Exam GI & Abdominal Exam: Soft, Normal Bowel Sounds. absent: Rigid, Tenderness (no tenderness to abdomen or inguinal area), Rebound - Extremities Exam Extremities Exam: Full ROM, Normal Capillary Refill, Tenderness (mild tenderness to palpation of L knee). absent: Calf Tenderness, Normal Inspection (Improved edema, warmth and erythema to LLE from knee to ankle and contained within demarcated line) - Neurological Exam Neurological Exam: Alert, Awake, Oriented x3 - Psychiatric Exam Psychiatric exam: Normal Affect, Normal Mood - Skin Skin Exam: Dry, Normal Color, Warm Assessment and Plan - Assessment and Plan (Free Text) Plan: 32 year old male PMHx of polymyositis and rhabdomyolysis admitted for left leg cellulitis. L leg cellulitis -Cefepime 2g Q12H added on 12/07 -Vancomycin increased to 1500mg Q12H -vanco trough 12/07 12pm: <5, subtherapeutic vanco trough 7.2 on 12/09/17 04:30 next vanco trough 12/10 4:30 pm continue to monitor -discontinued Ceftriaxone 2gm Q24H -blood cultures: negative 3 days -Venous doppler LLE: negative -Tylenol for fevers -Dr. Zuniga, ID, consulted. Help appreciated. Rhabdomyolysis -Total CK: 1234>704>558>511>604 -NS @ 150mls/hr -f/u CK isoenzymes -UA: 3+ protein, 1+ketone, 1+blood Hx of Polymyositis -CRP:134.5 -consulted rheumatology, Dr. Bolton, recs appreciated. Elevated LFTs likely reaction to cefepime -AST/ALT: 57/38--->95/118>76/112 -Alk Phos: 79--->250 -discontinue cefepime -continue to monitor Proplylaxis -SCD R leg only -chemical VTE prophylaxis not indicated -GI prophylaxis not indicated -Lactobacillus 1cap PO BID -[facility] <Doyle Tapia - Last Filed: 12/09/17 19:29> Objective - Vital Signs/Intake and Output Vital Signs (last 24 hours): Temp Pulse Resp BP Pulse Ox 100.9 F H 101 H 20 138/79 94 L 12/09/17 17:10 12/09/17 15:50 12/09/17 15:50 12/09/17 15:50 12/09/17 15:50 Intake and Output: 12/09/17 12/10/17 18:59 06:59 Intake Total 1800 Balance 1800 - Medications Medications: Current Medications Acetaminophen (Tylenol 325mg Tab) 650 mg PO Q6 PRN PRN Reason: Fever >100.4 F Last Admin: 12/09/17 17:10 Dose: 650 mg Sodium Chloride (Sodium Chloride 0.9%) 1,000 mls @ 150 mls/hr IV .Q6H40M [facility] Last Admin: 12/09/17 18:24 Dose: 150 mls/hr Vancomycin HCl 1,500 mg/ (Sodium Chloride) 500 mls @ 200 mls/hr IVPB Q12H [facility]; Protocol Last Admin: 12/09/17 18:24 Dose: 200 mls/hr Ketorolac Tromethamine (Toradol) 30 mg IVP Q6 PRN PRN Reason: Pain, severe (8-10) Ketorolac Tromethamine (Toradol) 15 mg IVP Q6 PRN PRN Reason: Pain, moderate (4-7) Lactobacillus Acidophilus (Bacid Acidophilus) 1 cap PO BID [facility] Last Admin: 12/09/17 17:10 Dose: 1 cap Pantoprazole Sodium (Protonix Ec Tab) 40 mg PO DAILY [facility] Last Admin: 12/09/17 10:26 Dose: 40 mg - Labs Labs: 12/09/17 05:07 12/09/17 05:07 Attending/Attestation - Attestation I have personally seen and examined this patient.: Yes I have fully participated in the care of the patient.: Yes I have reviewed all pertinent clinical information, including history, physical exam and plan: Yes Notes (Text): 12/09/17 19:15 Patient was seen and examined at 9:15 AM 12/09/17 663 A Care of this patient was gone over in detail with the resident. Upon FULL ROS: Pain in the Left Lower Leg has resolved NO diarrhea NO chest pain NO SOB/Cough/Wheezing NO abdominal pain NO burning/pain with urination NO changes in color of urine NO paresthesias NO other complaints upon FULL ROS General: AAOX3, NAD HEENT: NCA, EOMI, PERRLA, NO cervical/submandibular/supraclavicular lymphadenopathy, NO pharyngeal erythema/exudate, NO thyromegaly, Nasal Turbinates are moist/nonerythematous/nonedematous Cardio: NS1, NS2, NO M/R/G Resp: CTA B/L, NO R/R/W GI: BSX4, Soft, NT, ND, NO guarding/rebound tenderness, NO HSM Ext: Pulses are strong and equal AND capillary refill is 2 seconds in B/L UE and LE, Left Lower Anterior Leg from superior to the ankle to the left knee: erythema, warmth, nonpitting edema have improved and no longer tender to palpation, Normal coloration of the bilateral feet toes Neuro: CN II Through XII are grossly intact Assessments: 1). Left Lower Anterior Leg Cellulitis 2). Rhabdomyolysis 3). Hx Polymyositis LFTs continue to rise: likely secondary to cephalosporin use and we will continue to monitor as ID Dr. Zuniga who was made aware discontinued the Cefepime and wants to continue only the Vancomycin Vancomycin Trough at 4:30 AM 12/09/17 level was noted. Vancomycin increased to 1,500 mg IV Q12H. F/U next Vancomycin Trough 4:30 PM 12/10/17 Continue NS IVF at 150 ml/hr (and patient has been diligent with drinking plenty of water) and follow the Total CK for the Rhabdomyolysis Blood Culture negative to date despite fevers. Dr. Zuniga recommended CT Chest/Abdomen/Pelvis for possible alternate source of the fever, however Medicine Team will hold off on this for now. F/U recommendations from Rhuematologist Dr. Bolton concerning patient's history of Polymyositis. Doyle Tapia D.O.
[2017-12-09] MEDS: Pantoprazole 40 mg EC Tab PO SCH (10:26)
[2017-12-09] MEDS: Lactobacillus Acidophilus 500 MU Cap PO SCH ×2 (10:26→17:10)
[2017-12-10] MEDS: Sodium Chloride 0.9% 1,000 ML IV SCH ×2 (05:04→05:49)
[2017-12-10 07:25] LABS: BASO # 0.1 K/uL (0.0-0.2); BASO % 0.8 % (0.0-2.0); EOS # 0.3 K/uL (0.0-0.7); HEMOGLOBIN 11.3 g/dL (12.0-18.0); LYMPH # 1.5 K/uL (1.0-4.3); MEAN CELL VOLUME 90.4 fL (80.0-94.0); MEAN CORPUSCULAR HEMOGLOBIN 30.7 pg (27.0-31.0); MEAN PLATELET VOLUME 8.4 fL (7.2-11.7); MONO # 0.8 K/uL (0.0-0.8); MONO % 8.4 % (0.0-10.0); NEUT # 6.3 K/uL (1.8-7.0); NEUT % 70.8 % (50.0-75.0); RBC 3.69 Mil/uL (4.40-5.90); RED CELL DISTRIBUTION WIDTH 12.6 % (11.5-14.5)
[2017-12-10 08:02] LABS: ALB/GLOB RATIO 0.9 (1.0-2.1); ALBUMIN 3.3 g/dL (3.5-5.0); ALT/SGPT 104 U/L (21-72); AST/SGOT 64 U/L (17-59); BLOOD UREA NITROGEN 6 mg/dL (9-20); CALCIUM 8.5 mg/dl (8.6-10.4); GFR NON-AFRICAN AMERICAN > 60
--- NOTE | 2017-12-10 08:15 | CP.PCM.PN ---
Addendum entered and electronically signed by Ani Gorman 12/10/17 21:43: L knee XRay: Prominent soft tissue swelling suggestive of cellulitis. Thickening of prepatellar soft tissues for which underlying prepatellar bursitis cannot be excluded. Small suprapatellar joint effusion. (see full report) Addendum entered and electronically signed by Ani Gorman 12/10/17 11:44: I left a message with Dr. Bolton's answering service on 12/09/17 at 4:30 PM to inform him of the consult. Original Note: Subjective - Date & Time of Evaluation Date of Evaluation: 12/10/17 Time of Evaluation: 07:45 - Subjective Subjective: Patient was seen and examined at 7:45 AM 12/10/17 663 A Upon FULL ROS: Pain in the Left Lower Leg has resolved. However complains of Left Lateral Knee pain superior aspect ONLY with palpation and no pain with ambulation NO diarrhea NO chest pain NO SOB/Cough/Wheezing NO abdominal pain NO burning/pain with urination NO changes in color of urine NO paresthesias NO other complaints upon FULL ROS General: AAOX3, NAD HEENT: NCA, EOMI, PERRLA, NO cervical/submandibular/supraclavicular lymphadenopathy, NO pharyngeal erythema/exudate, NO thyromegaly, Nasal Turbinat es are moist/nonerythematous/nonedematous Cardio: NS1, NS2, NO M/R/G Resp: CTA B/L, NO R/R/W GI: BSX4, Soft, NT, ND, NO guarding/rebound tenderness, NO HSM Ext: Pulses are strong and equal AND capillary refill is 2 seconds in B/L UE and LE, Left Lower Anterior Leg from superior to the ankle to the left knee: erythema, warmth, nonpitting edema have improved (continues to recede from the areas demarcated with ink) and no longer tender to palpation however pain with palpation of the left lateral knee superior aspect with palpation, Normal coloration of the bilateral feet toes Neuro: CN II Through XII are grossly intact Assessments: 1). Left Anterior Lower Leg Cellulitis 2). Rhabdomyolysis 3). Hx Polymyositis LFTs elevated: likely secondary to cephalosporin use and we will continue to monitor as ID Dr. Zuniga who was made aware discontinued the Cefepime and wants to continue only the Vancomycin. The elevated LFTs could also be secondary to the Hx Polymyositis. However, they were not elevated PRIOR to the initiation of cephalosporin therapy. As the cephalosporin was discontinued on 12/09/17, monitor the LFTs to ensure that they are trending down. Vancomycin Trough at 4:30 AM 12/09/17 level was noted. Vancomycin increased to 1,500 mg IV Q12H. F/U next Vancomycin Trough 4:30 PM 12/10/17 with goal 15 to 20. Continue NS IVF at 150 ml/hr (and patient has been diligent with drinking plenty of water) and follow the Total CK for the Rhabdomyolysis. Also keep in mind that Total CK can continue to be elevated in Polymyositis (however in active disease the Total CK is between 2,000 and 3,000 and the patient is no where this level). Blood Culture negative to date despite fevers. Dr. Zuniga recommended CT Chest/Abdomen/Pelvis for possible alternate source of the fever, however [place] dicine Team will hold off on this for now as the likely source is his Left Anterior Lower Leg Cellulitis. Also keep in mind that patient's with Polymyositis can continue to have low grade fevers. F/U Left Knee X Ray considering the complaint of pain as mentioned above in ROS. NO history of trauma to the area. NO pain with ambulation. Consider Orthopedics evaluation based upon results however I do not feel that this is necessary at this point. F/U recommendations from Rhuematologist Dr. Bolton concerning patient's history of Polymyositis. Active disease as mentioned above would be characterized with Total CK at level between 2,000 to 3,000 (or higher). Treatment would be steroids, however considering the Left Anterior Lower Leg Cellulitis, I do not believe we should initiate them at this point. Therefore, follow up with Dr. Bolton for further recommendations concerning this issue. Doyle Tapia D.O. Objective - Vital Signs/Intake and Output Vital Signs (last 24 hours): Temp Pulse Resp BP Pulse Ox 99 F 87 20 148/83 98 12/09/17 23:40 12/09/17 23:40 12/09/17 23:40 12/09/17 23:40 12/09/17 23:40 Intake and Output: 12/10/17 12/10/17 06:59 18:59 Output Total 700 Balance -700 - Medications Medications: Current Medications Acetaminophen (Tylenol 325mg Tab) 650 mg PO Q6 PRN PRN Reason: Fever >100.4 F Last Admin: 12/09/17 17:10 Dose: 650 mg Sodium Chloride (Sodium Chloride 0.9%) 1,000 mls @ 150 mls/hr IV .Q6H40M [facility] Last Admin: 12/10/17 05:49 Dose: 150 mls/hr Vancomycin HCl 1,500 mg/ (Sodium Chloride) 500 mls @ 200 mls/hr IVPB Q12H [facility]; Protocol Last Admin: 12/10/17 05:48 Dose: 200 mls/hr Ketorolac Tromethamine (Toradol) 30 mg IVP Q6 PRN PRN Reason: Pain, severe (8-10) Ketorolac Tromethamine (Toradol) 15 mg IVP Q6 PRN PRN Reason: Pain, moderate (4-7) Lactobacillus Acidophilus (Bacid Acidophilus) 1 cap PO BID [facility] Last Admin: 12/09/17 17:10 Dose: 1 cap Pantoprazole Sodium (Protonix Ec Tab) 40 mg PO DAILY [facility] Last Admin: 12/09/17 10:26 Dose: 40 mg - Labs Labs: 12/10/17 07:11 12/09/17 05:07
[2017-12-10] MEDS: Lactobacillus Acidophilus 500 MU Cap PO SCH ×2 (09:54→17:59)
[2017-12-10] MEDS: Pantoprazole 40 mg EC Tab PO SCH (09:54)
--- NOTE | 2017-12-10 10:44 | RAD ---
Left knee three views HISTORY: Cellulitis. COMPARISON: None available. FINDINGS: Prominent soft tissue swelling suggestive for cellulitis. Thickening of the prepatellar soft tissues for which underlying prepatellar bursitis can't be excluded. Joint spaces appear grossly preserved. Small suprapatellar joint effusion. IMPRESSION: Prominent soft tissue swelling suggestive for cellulitis. Thickening of the prepatellar soft tissues for which underlying prepatellar bursitis can't be excluded. Joint spaces appear grossly preserved. Small suprapatellar joint effusion. If pain persists, consider MRI.
--- NOTE | 2017-12-10 18:20 | CP.PCM.PN ---
Subjective - Date & Time of Evaluation Date of Evaluation: 12/10/17 Time of Evaluation: 15:00 - Subjective Subjective: dictated Objective - Vital Signs/Intake and Output Vital Signs (last 24 hours): Temp Pulse Resp BP Pulse Ox 98.2 F 73 20 162/90 H 97 12/10/17 16:00 12/10/17 16:00 12/10/17 16:00 12/10/17 16:00 12/10/17 16:00 Intake and Output: 12/10/17 12/10/17 06:59 18:59 Intake Total 2100 Output Total 700 Balance -700 2100 - Medications Medications: Current Medications Acetaminophen (Tylenol 325mg Tab) 650 mg PO Q6 PRN PRN Reason: Fever >100.4 F Last Admin: 12/09/17 17:10 Dose: 650 mg Sodium Chloride (Sodium Chloride 0.9%) 1,000 mls @ 150 mls/hr IV .Q6H40M [facility] Last Admin: 12/10/17 05:49 Dose: 150 mls/hr Vancomycin HCl 1,500 mg/ (Sodium Chloride) 500 mls @ 200 mls/hr IVPB Q12H [facility]; Protocol Last Admin: 12/10/17 17:50 Dose: 200 mls/hr Ketorolac Tromethamine (Toradol) 30 mg IVP Q6 PRN PRN Reason: Pain, severe (8-10) Ketorolac Tromethamine (Toradol) 15 mg IVP Q6 PRN PRN Reason: Pain, moderate (4-7) Lactobacillus Acidophilus (Bacid Acidophilus) 1 cap PO BID [facility] Last Admin: 12/10/17 17:59 Dose: 1 cap Pantoprazole Sodium (Protonix Ec Tab) 40 mg PO DAILY [facility] Last Admin: 12/10/17 09:54 Dose: 40 mg - Labs Labs: 12/10/17 07:11 12/10/17 07:11 Assessment and Plan (1) Cellulitis of left leg Status: Acute (2) Cellulitis of left knee Status: Acute
--- NOTE | 2017-12-11 00:15 | PN ---
DATE: 12/10/2017 SUBJECTIVE: The patient has been having fevers everyday, and we decided to do a CAT scan and x-ray of the left knee. Left knee shows some bursitis, and if he continues to have fever, he will need an Ortho evaluation for this. PHYSICAL EXAMINATION GENERAL: Otherwise, today, he was afebrile. VITAL SIGNS: Blood pressure is 147/82, respirations 20. HEENT: Head is atraumatic, normocephalic. NECK: Supple. HEART: S1, S2 is regular. LUNGS: Clear. ABDOMEN: Soft. EXTREMITIES: He did complain of left knee pain. He said more pain was in the knee when he puts pressure on his leg and when he puts it down. His cellulitis has markedly improved, but still remnants are there of it on the leg as well as the knee. LABORATORY DATA: White count is 9, hemoglobin 11.3, hematocrit 33.4, platelet count is 318. ESR was 115 before. LFTs today, they are still high. C-reactive protein was 134.50, markedly elevated. His LFTs have been elevated, and he has dermatomyositis, so I wanted him to be evaluated by the dyeing machine feeder. His Maxipime, we discontinued it as it could be one of the causes for it. DIAGNOSTIC DATA: His CAT scan is pending at this time. Left knee shows bursitis and some fluid there. If he continues to have pain, they will have to aspirate the bursa. MEDICATIONS: We have been giving him almost 3 g of vancomycin now. We will continue that, and we will follow recommendations of dyeing machine feeder if he could be called. Harinder Zuniga MD
[2017-12-11 06:32] LABS: BASO # 0.1 K/uL (0.0-0.2); BASO % 1.1 % (0.0-2.0); EOS # 0.4 K/uL (0.0-0.7); EOS % 5.1 % (0.0-4.0); HEMOGLOBIN 11.6 g/dL (12.0-18.0); LYMPH # 1.8 K/uL (1.0-4.3); LYMPH % 20.6 % (20.0-40.0); MEAN CELL VOLUME 90.1 fL (80.0-94.0); MEAN CORPUSCULAR HEMOGLOBIN 31.1 pg (27.0-31.0); MEAN CORPUSCULAR HGB CONC 34.5 g/dL (33.0-37.0); MEAN PLATELET VOLUME 7.9 fL (7.2-11.7); MONO # 0.8 K/uL (0.0-0.8); MONO % 8.9 % (0.0-10.0); NEUT # 5.5 K/uL (1.8-7.0); NEUT % 64.3 % (50.0-75.0); RBC 3.73 Mil/uL (4.40-5.90); RED CELL DISTRIBUTION WIDTH 12.8 % (11.5-14.5); WHITE BLOOD COUNT 8.5 K/uL (4.8-10.8)
[2017-12-11 06:39] LABS: ALB/GLOB RATIO 0.9 (1.0-2.1); ALBUMIN 3.7 g/dL (3.5-5.0); ALT/SGPT 106 U/L (21-72); AST/SGOT 67 U/L (17-59); BLOOD UREA NITROGEN 9 mg/dL (9-20); CALCIUM 8.7 mg/dl (8.6-10.4); GFR NON-AFRICAN AMERICAN > 60
[2017-12-11] MEDS: Lactobacillus Acidophilus 500 MU Cap PO SCH ×2 (09:41→18:19)
[2017-12-11] MEDS: Pantoprazole 40 mg EC Tab PO SCH (09:41)
[2017-12-11] MEDS: Sodium Chloride 0.9% 1,000 ML IV SCH ×4 (10:42→21:38)
--- NOTE | 2017-12-11 13:43 | CP.PCM.PN ---
Subjective - Date & Time of Evaluation Date of Evaluation: 12/11/17 Time of Evaluation: 13:40 - Subjective Subjective: Medicine - Dr. Kruse's service Patient seen and examined at bedside. He was in no acute distress. Denies LLE pain and tenderness, edema, diarrhea. Objective - Vital Signs/Intake and Output Vital Signs (last 24 hours): Temp Pulse Resp BP Pulse Ox 98.6 F 70 20 150/83 94 L 12/11/17 07:00 12/11/17 07:00 12/11/17 07:00 12/11/17 07:00 12/11/17 07:00 Intake and Output: 12/11/17 12/11/17 06:59 18:59 Output Total 1000 Balance -1000 - Medications Medications: Current Medications Acetaminophen (Tylenol 325mg Tab) 650 mg PO Q6 PRN PRN Reason: Fever >100.4 F Last Admin: 12/09/17 17:10 Dose: 650 mg Vancomycin HCl 1,500 mg/ (Sodium Chloride) 500 mls @ 200 mls/hr IVPB Q12H [facility]; Protocol Last Admin: 12/11/17 05:54 Dose: 200 mls/hr Sodium Chloride (Sodium Chloride 0.9%) 1,000 mls @ 150 mls/hr IV .Q6H40M [facility] Last Admin: 12/11/17 10:42 Dose: Not Given Ketorolac Tromethamine (Toradol) 30 mg IVP Q6 PRN PRN Reason: Pain, severe (8-10) Last Admin: 12/10/17 22:20 Dose: 30 mg Ketorolac Tromethamine (Toradol) 15 mg IVP Q6 PRN PRN Reason: Pain, moderate (4-7) Lactobacillus Acidophilus (Bacid Acidophilus) 1 cap PO BID [facility] Last Admin: 12/11/17 09:41 Dose: 1 cap Pantoprazole Sodium (Protonix Ec Tab) 40 mg PO DAILY [facility] Last Admin: 12/11/17 09:41 Dose: 40 mg - Labs Labs: 12/11/17 06:15 12/11/17 06:15 - Constitutional Appears: No Acute Distress - Head Exam Head Exam: ATRAUMATIC - Respiratory Exam Respiratory Exam: Clear to Ausculation Bilateral, NORMAL BREATHING PATTERN - Cardiovascular Exam Cardiovascular Exam: REGULAR RHYTHM - GI/Abdominal Exam GI & Abdominal Exam: Soft, Normal Bowel Sounds - Psychiatric Exam Psychiatric exam: Normal Affect, Normal Mood - Skin Skin Exam: Erythema. absent: Warm Additional comments: Left anterior tibialis with marker of cellulitis on admission has decreased, currently non-tender but with pitting edema. Not warm to touch. - Additional Findings Additional findings: Knee exam: Left and right knees both are negative anterior and posterior drawer tests, ne gative varus/valgus test Assessment and Plan - Assessment and Plan (Free Text) Assessment: 32 y/o male with hx of rhabdomyolysis and dermatomyositis presented with LLE swelling and redness on 12/05. Admitted for cellulitis treatment. Has been afebrile since 12/09. 1) LLE cellulitis - ID (Dr. Zuniga) following -continue with vanc 1 gm q12h, with anticipation of transition to clinda or doxy PO per ID recs -anticipate vanc trough tomorrow, 12/12 (target 15-20). Yesterday, 12/10 was below target, 7.9 -continue with lactobacillus probiotic -left knee exam wnl today, though any knee pain can also be 2/2 dermatomyositis 2) hx of dermatomyositis -patient's CK was been under the limits of normal range of active disease <2000. Patient on active tx of his cellulitis abx, will wait to consider rx steroids. DVT ppx: SCDs GI ppx: protonix 40 mg daily Seen and discussed with Dr. Aixa Rosales, DO PGY-1
[2017-12-11] MEDS: SODIUM CHLORIDE 0.9% IVPB SCH (16:41)
[2017-12-11] MEDS: VANCOMYCIN IVPB SCH (16:41)
--- NOTE | 2017-12-11 18:04 | CP.PCM.CON ---
History of Present Illness - History of Present Illness History of Present Illness: Orthopedic consult: Dr. Guzmán Patient is a 32 y/o male with PMH of polymyositis who c/o L knee/leg pain. The patient notes that there was a scab which he noticed 2 weeks ago on his left knee. He then experienced redness, swelling and pain to the left knee extending to the distal anterior jett, that began 1 week ago which acutely worsened. He was diagnosed with cellulitis and admitted to [facility] for IV antibiotics. Orthopedics was consulted due to his left knee effusion. During his stay over the past week, he states that the pain, swelling and redness has significantly improved. He also states that his ROM has considerably improved. Currently his pain is mild, controlled with pain medication. The patient has been treated ov er the past 2-3 years for polymyositis and events of rhabdomyolosis. He denies CP/SOB/N/V/D/fever/melena/dysuria. Review of Systems - Review of Systems All systems: reviewed and no additional remarkable complaints except Review of Systems: as per HPI Past Patient History - Past Medical History & Family History Past Medical History?: No Past Family History: Reviewed and not pertinent - Past Social History Smoking Status: Light Smoker < 10 Cigarettes Daily Alcohol: None Drugs: Denies - CARDIAC Hx Cardiac Disorders: No - PULMONARY Hx Respiratory Disorders: No - NEUROLOGICAL Hx Neurological Disorder: No - HEENT Hx HEENT Problems: No - RENAL Hx Chronic Kidney Disease: No - ENDOCRINE/METABOLIC Hx Endocrine Disorders: No - HEMATOLOGICAL/ONCOLOGICAL Hx Human Immunodeficiency Virus (HIV): No - INTEGUMENTARY Hx Dermatological Problems: No - MUSCULOSKELETAL/RHEUMATOLOGICAL Hx Falls: Yes Other/Comment: polymyositis, rhabdomyolosis - GASTROINTESTINAL Hx Gastrointestinal Disorders: No - GENITOURINARY/GYNECOLOGICAL Hx Genitourinary Disorders: No - PSYCHIATRIC Hx Substance Use: No (DENIED) - SURGICAL HISTORY Hx Surgeries: No - ANESTHESIA Hx Anesthesia: No Meds Allergies/Adverse Reactions: Allergies Allergy/AdvReac Type Severity Reaction Status Date / Time No Known Allergies Allergy Verified 12/05/17 09:56 - Medications Medications: Current Medications Acetaminophen (Tylenol 325mg Tab) 650 mg PO Q6 PRN PRN Reason: Fever >100.4 F Last Admin: 12/09/17 17:10 Dose: 650 mg Sodium Chloride (Sodium Chloride 0.9%) 1,000 mls @ 150 mls/hr IV .Q6H40M SVITLANA Last Admin: 12/11/17 16:42 Dose: 150 mls/hr Vancomycin HCl 1,600 mg/ (Sodium Chloride) 500 mls @ 200 mls/hr IVPB Q12H SVITLANA; Protocol Last Admin: 12/11/17 16:41 Dose: 200 mls/hr Lactobacillus Acidophilus (Bacid Acidophilus) 1 cap PO BID SVITLANA Last Admin: 12/11/17 09:41 Dose: 1 cap Pantoprazole Sodium (Protonix Ec Tab) 40 mg PO DAILY SVITLANA Last Admin: 12/11/17 09:41 Dose: 40 mg Physical Exam - Constitutional Appears: Well, No Acute Distress - Head Exam Head Exam: ATRAUMATIC, NORMOCEPHALIC - Eye Exam Eye Exam: EOMI, Normal appearance, PERRL - ENT Exam ENT Exam: Mucous Membranes Moist - Respiratory Exam Respiratory Exam: NORMAL BREATHING PATTERN - Cardiovascular Exam Cardiovascular Exam: +S1, +S2 - GI/Abdominal Exam GI & Abdominal Exam: Soft. absent: Tenderness - Extremities Exam Additional comments: LLE: erythema decreased from initial hospital markings extending from anterior knee to distal leg mild swelling, no effusion healed abrasion infrapatellar ROM 0-110 sensation intact SP/DP/TN motor intact EHL/FHL/TA/G/Q/HS pedal pulses intact comps soft NT b/l - Neurological Exam Neurological exam: Alert, Oriented x3 - Psychiatric Exam Psychiatric exam: Normal Affect, Normal Mood Results - Vital Signs Recent Vital Signs: Last Vital Signs Temp 98.2 F 12/11/17 15:00 Pulse 73 12/11/17 15:00 Resp 20 12/11/17 15:00 BP 149/82 12/11/17 15:00 Pulse Ox 95 12/11/17 15:00 - Labs Result Diagrams: 12/11/17 06:15 12/11/17 06:15 Labs: Laboratory Results - last 24 hr 12/06/17 12/11/17 12/11/17 18:49 06:15 06:15 WBC 8.5 RBC 3.73 L Hgb 11.6 L Hct 33.6 L MCV 90.1 MCH 31.1 H MCHC 34.5 RDW 12.8 Plt Count 367 MPV 7.9 Neut % (Auto) 64.3 Lymph % (Auto) 20.6 [place] % (Auto) 8.9 Eos % (Auto) 5.1 H Baso % (Auto) 1.1 Neut # (Auto) 5.5 Lymph # (Auto) 1.8 [place] # (Auto) 0.8 Eos # (Auto) 0.4 Baso # (Auto) 0.1 Sodium 141 Potassium 4.0 Chloride 102 Carbon Dioxide 29 Anion Gap 13 BUN 9 Creatinine 0.5 L Est GFR ( Amer) > 60 Est GFR (Non-Af Amer) > 60 Random Glucose 113 H Calcium 8.7 Total Bilirubin 0.6 AST 67 H ALT 106 H Alkaline Phosphatase 256 H CK-MM (CK-3) 96 CK-MB (CK-2) 0 CK-BB (CK-1) None detected CK Isoenzymes Interp Macro ck type 1 Total Protein 7.6 Albumin 3.7 Globulin 4.0 H Albumin/Globulin Ratio 0.9 L Assessment & Plan (1) Cellulitis of left knee Assessment and Plan: -No effusion appreciated, prior effusion likely improved -Continue IV abx as per ID -PT/OT FWB ROM/strengthening as tolerated -pain control -No acute orthopedic intervention at this time -Will consider surgical intervention if symptoms worsen -please reconsult as needed -above d/w Dr. Guzmán in agreement Status: Acute (2) Cellulitis of left leg Status: Acute Radiology Interpretation - Notes: Notes:: Accession No. : [id number] Patient Name / ID : SUMANTH DOMINGUEZ / [id number] Exam Date : 12/10/2017 08:40:36 ( Approved ) Study Comment : Sex / Age : M / 32Y Creator : Lj Jean MD Dictator : Lj Jean MD Corporate Intern : Net Wpf Developer : Lj Jean MD Approver2 : Report Date : 12/10/2017 10:38:04 My Comment : Left knee three views HISTORY: Cellulitis. COMPARISON: None available. FINDINGS: Prominent soft tissue swelling suggestive for cellulitis. Thickening of the prepatellar soft tissues for which underlying prepatellar bursitis can't be excluded. Joint spaces appear grossly preserved. Small suprapatellar joint effusion. IMPRESSION: Prominent soft tissue swelling suggestive for cellulitis. Thickening of the prepatellar soft tissues for which underlying prepatellar bursitis can't be excluded. Joint spaces appear grossly preserved. Small suprapatellar joint effusion. If pain persists, consider MRI. - Radiology Interpretation #2 Interpretation: Accession No. : [id number] Patient Name / ID : SUMANTH DOMINGUEZ / [id number] Exam Date : 12/05/2017 12:45:51 ( Approved ) Study Comment : Sex / Age : M / 32Y Creator : oRgelio Crooks Dictator : Rogelio Crooks Corporate Intern : Net W[employer] Developer : Jared Alston MD Approver2 : Report Date : 12/05/2017 13:03:07 My Comment : Date of service: 12/05/2017 PROCEDURE: Left Lower Extremity Venous Duplex Exam. HISTORY: Edema of Left Leg. R/O DVT PRIORS: None. TECHNIQUE: Left common femoral, femoral, popliteal and posterior tibial, peroneal and great saphenous veins were evaluated. Flow was assessed with color Doppler, compressibility, assessment of phasic flow and augmentation response. Report prepared by KAITLYNN Rader, RVT FINDINGS: LEFT: 1. Common Femoral Vein: 1.1. Compressibility - Fully compressible: Thrombus - None : Flow - Phasic: Augmentation -Normal: Reflux - None. 2. Femoral Vein: 2.1. Compressibility - Fully compressible: Thrombus - None: Flow - Phasic: Augmentation -Normal: Reflux - None. 3. Popliteal Vein: 3.1. Compressibility - Fully compressible: Thrombus - None: Flow - Phasic: Augmentation -Normal: Reflux - None. 4. Posterior Tibial Vein: 4.1. Compressibility - Fully compressible: Thrombus - None: Flow - Phasic: Augmentation -Normal: Reflux - None. 5. Peroneal Vein: 5.1. Compressibility - Fully compressible: Thrombus - None: Flow - Phasic: Augmentation -Normal: Reflux - None. 6. Great Saphenous Vein: 6.1. Compressibility - Fully compressible: Thrombus - None: Flow - Phasic: Aug mentation - Normal: Reflux - None. OTHER FINDINGS: Anechoic vascularized masses noted in the left groin area, possibly enlarged lymph nodes. IMPRESSION: No evidence of deep or superficial vein thrombosis of the left lower extremity with excellent venous flow. Normal valve function noted of the left side. Normal venous flow noted in the right common femoral vein.
[2017-12-12] MEDS: Sodium Chloride 0.9% 1,000 ML IV SCH ×4 (00:33→11:15)
[2017-12-12] MEDS: VANCOMYCIN IVPB SCH (04:20)
[2017-12-12] MEDS: SODIUM CHLORIDE 0.9% IVPB SCH (04:20)
[2017-12-12 04:30] LABS: BASO # 0.1 K/uL (0.0-0.2); BASO % 0.8 % (0.0-2.0); EOS # 0.5 K/uL (0.0-0.7); EOS % 4.8 % (0.0-4.0); HEMOGLOBIN 12.2 g/dL (12.0-18.0); LYMPH # 2.1 K/uL (1.0-4.3); MEAN CELL VOLUME 89.5 fL (80.0-94.0); MEAN CORPUSCULAR HEMOGLOBIN 30.8 pg (27.0-31.0); MEAN CORPUSCULAR HGB CONC 34.4 g/dL (33.0-37.0); MEAN PLATELET VOLUME 7.6 fL (7.2-11.7); MONO # 0.6 K/uL (0.0-0.8); MONO % 6.1 % (0.0-10.0); NEUT # 6.7 K/uL (1.8-7.0); NEUT % 67.3 % (50.0-75.0); RBC 3.98 Mil/uL (4.40-5.90); RED CELL DISTRIBUTION WIDTH 12.6 % (11.5-14.5); WHITE BLOOD COUNT 9.9 K/uL (4.8-10.8)
[2017-12-12 04:42] LABS: ALB/GLOB RATIO 0.9 (1.0-2.1); ALBUMIN 3.8 g/dL (3.5-5.0); ALT/SGPT 105 U/L (21-72); AST/SGOT 62 U/L (17-59); BLOOD UREA NITROGEN 8 mg/dL (9-20); CALCIUM 8.7 mg/dl (8.6-10.4); GFR NON-AFRICAN AMERICAN > 60
[2017-12-12 08:06] VITALS: BP 156/88; PULSE 70; TEMP 98.5
[2017-12-12] MEDS: Lactobacillus Acidophilus 500 MU Cap PO SCH (09:12)
[2017-12-12] MEDS: Pantoprazole 40 mg EC Tab PO SCH (09:22)
--- NOTE | 2017-12-12 13:55 | CP.PCM.DIS ---
Provider - Provider Date of Admission: 12/05/17 11:56 Attending physician: Eliza Kruse DO Primary care physician: Dr. Bolton Consults: Dr. Bolton (PMD and rheum), Nadia (ID) Time Spent in preparation of Discharge (in minutes): 45 Diagnosis - Discharge Diagnosis (1) Left knee pain Status: Acute Hospital Course - Lab Results Lab Results: Micro Results 12/05/17 13:11 Blood Blood Culture - Final NO GROWTH AFTER 5 DAYS 12/05/17 13:11 Blood Gram Stain - Final TEST NOT PERFORMED 12/05/17 13:11 Blood Blood Culture - Final NO GROWTH AFTER 5 DAYS 12/05/17 13:11 Blood Gram Stain - Final TEST NOT PERFORMED 12/05/17 12:49 Urine,Clean Catch Urine Culture - Final No Growth (<1,000 CFU/ML) Most Recent Lab Values WBC 9.9 K/uL (4.8-10.8) 12/12/17 04:26 RBC 3.98 Mil/uL (4.40-5.90) L 12/12/17 04:26 Hgb 12.2 g/dL (12.0-18.0) 12/12/17 04:26 Hct 35.6 % (35.0-51.0) 12/12/17 04:26 MCV 89.5 fL (80.0-94.0) 12/12/17 04:26 MCH 30.8 pg (27.0-31.0) 12/12/17 04:26 MCHC 34.4 g/dL (33.0-37.0) 12/12/17 04:26 RDW 12.6 % (11.5-14.5) 12/12/17 04:26 Plt Count 395 K/uL (130-400) 12/12/17 04:26 MPV 7.6 fL (7.2-11.7) 12/12/17 04:26 Neut % (Auto) 67.3 % (50.0-75.0) 12/12/17 04:26 Lymph % (Auto) 21.0 % (20.0-40.0) 12/12/17 04:26 [place] % (Auto) 6.1 % (0.0-10.0) 12/12/17 04:26 Eos % (Auto) 4.8 % (0.0-4.0) H 12/12/17 04:26 Baso % (Auto) 0.8 % (0.0-2.0) 12/12/17 04:26 Neut # (Auto) 6.7 K/uL (1.8-7.0) 12/12/17 04:26 Lymph # (Auto) 2.1 K/uL (1.0-4.3) 12/12/17 04:26 [place] # (Auto) 0.6 K/uL (0.0-0.8) 12/12/17 04:26 Eos # (Auto) 0.5 K/uL (0.0-0.7) 12/12/17 04:26 Baso # (Auto) 0.1 K/uL (0.0-0.2) 12/12/17 04:26 ESR 115 mm/hr (0-15) H 12/09/17 05:07 Sodium 142 mmol/L (132-148) 12/12/17 04:26 Potassium 3.7 mmol/L (3.6-5.2) 12/12/17 04:26 Chloride 102 mmol/L (98-107) 12/12/17 04:26 Carbon Dioxide 28 mmol/L (22-30) 12/12/17 04:26 Anion Gap 16 (10-20) 12/12/17 04:26 BUN 8 mg/dL (9-20) L 12/12/17 04:26 Creatinine 0.6 mg/dL (0.8-1.5) L 12/12/17 04:26 Est GFR ( Amer) > 60 12/12/17 04:26 Est GFR (Non-Af Amer) > 60 12/12/17 04:26 POC Glucose (mg/dL) 109 mg/dL (65-110) 12/05/17 21:10 Random Glucose 117 mg/dL (75-110) H 12/12/17 04:26 Calcium 8.7 mg/dl (8.6-10.4) 12/12/17 04:26 Phosphorus 4.4 mg/dL (2.5-4.5) 12/11/17 19:22 Magnesium 1.9 mg/dL (1.6-2.3) 12/11/17 19:22 Total Bilirubin 0.4 mg/dL (0.2-1.3) 12/12/17 04:26 AST 62 U/L (17-59) H 12/12/17 04:26 ALT 105 U/L (21-72) H 12/12/17 04:26 Alkaline Phosphatase 237 U/L (38-126) H 12/12/17 04:26 Total Creatine Kinase 671 U/L (55-170) H 12/12/17 04:26 CK-MM (CK-3) 96 % (95-100) 12/06/17 18:49 CK-MB (CK-2) 0 % (<5) 12/06/17 18:49 CK-BB (CK-1) None detected % (None Detected) 12/06/17 18:49 CK Isoenzymes Interp Macro ck type 1 12/06/17 18:49 C-Reactive Protein 134.50 mg/L (0.0-9.9) H 12/09/17 05:07 Total Protein 8.0 g/dL (6.3-8.3) 12/12/17 04:26 Albumin 3.8 g/dL (3.5-5.0) 12/12/17 04:26 Globulin 4.2 gm/dL (2.2-3.9) H 12/12/17 04:26 Albumin/Globulin Ratio 0.9 (1.0-2.1) L 12/12/17 04:26 Procalcitonin 0.07 NG/ML (0.19-0.49) L 12/06/17 06:35 Urine Color Rosie (YELLOW) 12/05/17 12:49 Urine Clarity Clear (Clear) 12/05/17 12:49 Urine pH 5.0 (5.0-8.0) 12/05/17 12:49 Ur Specific [place] 1.025 (1.003-1.030) 12/05/17 12:49 Urine Protein 3+ mg/dL (NEGATIVE) H 12/05/17 12:49 Urine Glucose (UA) Normal mg/dL (Normal) 12/05/17 12:49 Urine Ketones 1+ mg/dL (NEGATIVE) H 12/05/17 12:49 Urine Blood 1+ (NEGATIVE) H 12/05/17 12:49 Urine Nitrate Negative (NEGATIVE) 12/05/17 12:49 Urine Bilirubin Negative (NEGATIVE) 12/05/17 12:49 Urine Urobilinogen Normal mg/dL (0.2-1.0) 12/05/17 12:49 Ur Leukocyte Esterase Neg [place]/uL (Negative) 12/05/17 12:49 Urine WBC (Auto) 1 /hpf (0-5) 12/05/17 12:49 Urine RBC (Auto) < 1 /hpf (0-3) 12/05/17 12:49 Urine Bacteria Rare (<OCC) 12/05/17 12:49 Vancomycin Trough 7.2 ug/mL (5.0-10.0) 12/12/17 04:26 Complement C3 147.0 mg/dL (88.0-165.0) 12/09/17 05:07 Complement C4 25.4 mg/dL (14.0-44.0) 12/09/17 05:07 - Hospital Course Hospital Course: PMHx: polymyositis, rhabdomyolysis, H. Pylori PSHx: denies Medications: denies Allergies: NKDA Family Hx: 3 year old daughter with multiple surgeries to correct congenital lack of anus Social: denies tobacco use, alcohol and illicit drugs. 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 Proxy: Jose Alejandro, brother [phone] Code status: full code During admission: 32 year old male PMHx of polymyositis and rhabdomyolysis as per medical record presents to ED complaining of redness, swelling, and pain to left lower extremity. States he scratched a scab on his left knee one week ago and 3 days ago developed pain, redness, and swelling extending from L knee down to the foot. Pain worsens with range of motion. Symptoms are associated with fevers and chills. Denies focal weakness, numbness, tingling, travel, trauma, chest pain, shortness of breath, cough, palpitations, muscle weakness, nausea, vomiting, abdominal pain, diarrhea. Patient has previous admissions to [facility] for rhabdomyolysis and polymyositis treated with, Imuran, Methotrexate, and steroid therapy. Patient last took steroids/followed up with taste tester, Dr. Bolton, approximately 1.5 years ago. During hospitalization: 32 y/o male with PMHx of polymyositis and rhabdomyolysis presented to the ED on 12/05 with LLE swelling, redness, and pain. He also had fevers and chills. Patient was diagnosed with cellulitis and was treated with vancomycin. Patient had previous admission for his PMHx and has been a patient of taste tester Dr. Bolton, who he last seen 1.5 years ago when he used to be on imuran, MTX and steroids. During hospitalization, his LLE swelling, redness, and pain subsided. Dr. Zuniga (ID) followed him. She recommended him to be on a total of 7 days of IV vancomycin before transitioning to clindamycin PO upon discharge. Due to his acute cellulitis treatment, it is not recommended for him to take medications for his polymyositis and rhabdomyolysis. His CKs have been <2000 consistently, indicating that his disease is inactive at the time. In addition to finishing abx, patient was advised to follow up with rheum and to hydrate well to maintain a low CK. Additionally, patient has been having left knee pain. A left knee XR was done which suggests some cellulitis. Also prepatellar bursitis cannot be excluded. Dr. Guzmán (ortho) consulted, who only recommends PT/OT for now opposed to s urgical treatment. Patient is stable for discharge home. Patient is to follow up in the [facility] [place] or at [facility] within one week for post hospital care. He is to take the following medications: 1. Clindamycin 300mg one by mouth three times a day for 7 days total, 2. Bacid one cap by mouth three times a day for one month. Medications were sent to the the [facility] pharmacy electronically. Patient is encouraged to increase oral hydration. Patient is to return to the emergency room if symptoms return. All instructions explained to the patient and he agrees. (*This is just a summary of events. Please see complete EMR for more details.) - Date & Time of H&P Date of H&P: 12/12/17 Time of H&P: 14:50 Discharge Exam - Head Exam Head Exam: ATRAUMATIC, NORMOCEPHALIC - Respiratory Exam Respiratory Exam: Clear to PA & Lateral, NORMAL BREATHING PATTERN - Cardiovascular Exam Cardiovascular Exam: REGULAR RHYTHM, +S1, +S2 - GI/Abdominal Exam GI & Abdominal Exam: Normal Bowel Sounds, Soft, Unremarkable - Extremities Exam Additional comments: Left knee pain upon varus stress test, negative anterior and posterior drawer tests - Neurological Exam Neurological exam: Alert, Oriented x3 - Psychiatric Exam Psychiatric exam: Normal Affect, Normal Mood - Skin Skin Exam: Dry, Intact Discharge Plan - Discharge Medications Prescriptions: Clindamycin [Cleocin] 300 mg PO TID 7 Days #21 cap Lactobacillus Acidophilus [Bacid Acidophilus] 1 cap PO TID #90 cap - Follow Up Plan Condition: GOOD Disposition: HOME/ ROUTINE Instructions: Heart Healthy Diet, Cellulitis (Skin Infection), Adult (DC), Rhabdomyolysis (DC), Cellulitis (GEN) Additional Instructions: Patient is stable for discharge home. Patient is to follow up in the [facility] [place] or at [facility] within one week for post hospital care. He is to take the following medications: 1. Clindamycin 300mg one by mouth three times a day for 7 days total, 2. Bacid one cap by mouth three times a day for one month. Medications were sent to the the [facility] pharmacy electronically. Patient is encouraged to increase oral hydration. Patient is to return to the emergency room if symptoms return. All instructions explained to the patient and he agrees. Referrals: [facility] [Outside]
[2017-12-17 13:57] VITALS: O2SAT 100
== END 2017-12-12 15:07 | disposition home or self-care (01) | DRG 383 ==
LOC: C.ER 09:39 → C.9E 11:56 → C.6T 18:39
PROVIDERS: ADMIT Hospitalist; ATTEND Hospitalist
DX: L03.116 Cellulitis of left lower limb (principal); M62.82 Rhabdomyolysis; F17.210 Nicotine dependence, cigarettes, uncomplicated; M70.40 Prepatellar bursitis, unspecified knee